=== PATIENT | male | born 1965 | race Caucasian/White ===

== ENCOUNTER 2017-08-12 13:15 | Emergency (ER) | payer MEDICARE, SELFPAY ==
[2017-08-12 13:17] VITALS: BP 127/66; PULSE 69; RESP 16; TEMP 36.7; O2SAT 97; BMI 24.3
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
--- NOTE | 2017-08-12 13:29 | ED.DEP ---
ED Disposition - Plan for ED Patient: Disposition: Home or Assisted Living Chief Complaint: Burn Instructions: ED Burn Scald Prescriptions: Bacitracin 28.4 gm TP TID #1 oint...g. Referrals: Jimmy Gleason MD [Primary Care Provider] -
[2017-08-12] MEDS: BACITRACIN 15 GM Tube 1 APPLIC TOPICAL (13:47)
== END 2017-08-12 13:49 | disposition home or self-care (01) ==
LOC: ED 13:38
PROVIDERS: Emergency Provider Emergency Medicine; Family Provider Family Medicine; PCP Family Medicine
DX: T23.241A Burn of second degree of multiple right fingers (nail), including thumb, initial encounter (principal); T31.0 Burns involving less than 10% of body surface; X11.1XXA Contact with running hot water, initial encounter; Y93.89 Activity, other specified; Y92.9 Unspecified place or not applicable; N18.6 End stage renal disease; Z99.2 Dependence on renal dialysis; Z79.899 Other long term (current) drug therapy
CPT/HCPCS: 99282

== ENCOUNTER → 2017-10-09 06:35 | Day surgery (SDC) | payer MEDICARE, SELFPAY ==
[2017-10-08 09:20] VITALS: BMI 24.3
[2017-10-09 07:03] LABS: Hematocrit 36.4 % (40-54); Hemoglobin 11.4 g/dl (13.0-16.5); Mean Corp Hgb Conc 31.3 g/gl (32-36); Mean Corpuscular Volume 92.6 fL (80-94); Mean Platelet Vol. 9.2 fl (6.2-12.0); Platelet Count 285 K/mm3 (150-450); RBC Distribution Width CV 15.9 % (11.6-14.6); Red Blood Count 3.93 M/mm3 (4.6-6.2); White Blood Count 5.4 K/mm3 (4.4-11.0)
[2017-10-09 07:05] LABS: Scan Indicated on CBC? Y/N NO
[2017-10-09 07:13] LABS: Anion Gap 11 (5-15); BUN 63 mg/dL (7-18); BUN/Creat Ratio 8.8 RATIO (10-20); Calcium,Total 8.2 mg/dL (8.5-10.1); Chloride 100 mmol/L (98-107); Creatinine, Serum 7.17 mg/dL (0.70-1.30); EST Glomerular Filtration Rate 9 mL/min (>60); Est Glom Filt Rate - Afr Amer 10 mL/min (>60); Estimated Creatinine Clearance 10.63 ml/min; Glucose 73 mg/dL (74-106); Potassium 5.3 mmol/L (3.5-5.1); Sodium Level 141 mmol/L (136-145)
--- NOTE | 2017-10-09 09:13 | PCM.OPRPT ---
Problem List (1) Problem with dialysis access Status: Acute Qualifiers: Encounter type: subsequent encounter Report of Operation Date of Procedure: 10/09/17 Pre-Operative Diagnosis: Problem with left upper extremity radiocephalic arteriovenous hemodialysis fistula Post-Operative Diagnosis: Normal-appearing left extremity radiocephalic arteriovenous fistula Surgery/Procedure Performed:: Left upper extremity fistulogram Description of Surgical Findings:: Timeout and informed consent was obtained. 52-year-old gent was taken to the special procedures lab. He was placed supine on the table. The left extremity sterilely prepped and draped. Closer to the antecubital space I instilled 2% lidocaine. Placed a micropuncture needle retrograde with flow inserted a micropuncture wire then a 6 Belgian short sheath dilator. Using an angled Glidewire and a 4 Belgian angled glide cath the wire and catheter placed in the radial artery proximal to the anastomosis. Using Isovue contrast fistulogram was taken to the forearm upper arm and chest area. He tolerated it well. Sheath was removed U suture of 4-0 nylon was placed. There is good pulse thrill and bruit at the completion Fistula gram demonstrates a very dominant large cephalic vein was some reasonable change in the mid and proximal forearm. There appears to be excellent left upper arm cephalic and basilic vein outflow. There also appears to be excellent central venous outflow. The anastomosis is widely patent. Impression Widely patent left upper extremity radiocephalic arteriovenous fistula with no evidence of hemodynamically significant stenosis There is still remaining a dominant tributary sidebranch on the radial aspect of the fistula. If there are ongoing difficulties consideration for side branch ligation of that tributary could be considered. It is quite dominant. Rafa Plasencia M.D., F.A.C.S.
--- NOTE | 2017-10-09 09:16 | OP.PCM_ITS ---
Problem List (1) Problem with dialysis access Status: Acute Qualifiers: Encounter type: subsequent encounter Report of Operation Date of Procedure: 10/09/17 Pre-Operative Diagnosis: Problem with left upper extremity radiocephalic arteriovenous hemodialysis fistula Post-Operative Diagnosis: Normal-appearing left extremity radiocephalic arteriovenous fistula Surgery/Procedure Performed:: Left upper extremity fistulogram Description of Surgical Findings:: Timeout and informed consent was obtained. 52-year-old gent was taken to the special procedures lab. He was placed supine on the table. The left extremity sterilely prepped and draped. Closer to the antecubital space I instilled 2% lidocaine. Placed a micropuncture needle retrograde with flow inserted a micropuncture wire then a 6 [place]an short sheath dilator. Using an angled Glidewire and a 4 [place]an angled glide cath the wire and catheter placed in the radial artery proximal to the anastomosis. Using Isovue contrast fistulogram was taken to the forearm upper arm and chest area. He tolerated it well. Sheath was removed U suture of 4-0 nylon was placed. There is good pulse thrill and bruit at the completion Fistula gram demonstrates a very dominant large cephalic vein was some reasonable change in the mid and proximal forearm. There appears to be excellent left upper arm cephalic and basilic vein outflow. There also appears to be excellent central venous outflow. The anastomosis is widely patent. Impression Widely patent left upper extremity radiocephalic arteriovenous fistula with no evidence of hemodynamically significant stenosis There is still remaining a dominant tributary sidebranch on the radial aspect of the fistula. If there are ongoing difficulties consideration for side branch ligation of that tributary could be considered. It is quite dominant. Rafa Plasencia M.D., F.A.C.S.
== END ==
PROVIDERS: Family Provider Family Medicine; PCP Family Medicine; Visit Provider Surgery
DX: T82.590A Other mechanical complication of surgically created arteriovenous fistula, initial encounter (principal); E11.22 Type 2 diabetes mellitus with diabetic chronic kidney disease; N18.9 Chronic kidney disease, unspecified; Z99.2 Dependence on renal dialysis; Z79.899 Other long term (current) drug therapy
CPT/HCPCS: 36415; 36901; 76937; 80048; 85027; Q9967; C1769

== ENCOUNTER → 2017-10-29 09:33 | Outpatient (CLI) | payer MEDICARE, SELFPAY ==
[2017-10-29 12:50] LABS: Cholesterol 118 mg/dL (200); High Density Lipoprotein 33 mg/dL; Lipase 167 U/L (73-393); Thyroid Stim Hormone (TSH) 1.71 uIU/mL (0.358-3.74); Triglycerides 74 mg/dL; Very Low Density Lipoprotein 15 mg/dL (5-40)
== END ==
PROVIDERS: Family Provider Family Medicine; PCP Family Medicine; Visit Provider Family Medicine
DX: K86.89 Other specified diseases of pancreas (principal); E11.22 Type 2 diabetes mellitus with diabetic chronic kidney disease
CPT/HCPCS: 36415; 80061; 83690; 84443

== ENCOUNTER 2017-11-17 20:40 | Inpatient (IN) | payer MEDICARE, SELFPAY ==
[2017-11-17] VITALS (7 sets, daily range): BP systolic 92–123; BP diastolic 48–56; PULSE 62–91; RESP 16; TEMP 36.9–38.8; O2SAT 87–96; BMI 25.3
--- NOTE | 2017-11-17 21:17 | RAD_ITS ---
STUDY: X-RAY CHEST REASON FOR EXAM: Male, 52 years old. Altered mental status TECHNIQUE: Frontal view of the chest COMPARISON: 07/12/2014 FINDINGS: There is airspace opacity in the right lower lobe which is likely infectious in etiology. The lungs are otherwise clear. There are no pleural effusions. There is no pneumothorax. The heart is normal in size. The visualized osseous structures are within normal limits. RAD/Chest 1 View (Portable) IMPRESSION: Right lower lobe opacity which is likely infectious in etiology. Electronically Signed: Mac Oliveros, at 21:50 EDT Tel , Service support ,
--- NOTE | 2017-11-17 21:17 | EKG12_ITS ---
Test Reason : ALT LOC Blood Pressure : / mmHG Vent. Rate : 085 BPM Atrial Rate : 085 BPM P-R Int : 146 ms QRS Dur : 080 ms QT Int : 398 ms P-R-T Axes : 066 035 004 degrees QTc Int : 473 ms Normal sinus rhythm Low voltage QRS Borderline ECG Confirmed by FRACISCO MIMS, LAURYN ([id number]), makeup editor MILVIA CERDA ([id number]) on 11/20/2017 2:05:01 PM Referred By: KAMAR Confirmed By:LAURYN YAP MD
--- NOTE | 2017-11-17 21:17 | CT_ITS ---
STUDY: CT BRAIN WITHOUT CONTRAST REASON FOR EXAM: Male, 52 years old. Altered mental status RADIATION DOSAGE (If Supplied By Facility): CTDIvol = ( 44.99 ) mGy, DLP = ( 745.49 ) mGycm TECHNIQUE: Transaxial CT imaging of the brain was performed without administration of intravenous contrast material. Individualized dose optimization techniques were used for this CT. COMPARISON: None. FINDINGS: There is no acute bleed or infarct. There are normal white matter tracts. The ventricles are normal in configuration. There is no hydrocephalus. There is mucosal hypertrophy in the right maxillary sinus. The visualized paranasal sinuses are otherwise clear. The mastoid air cells are well aerated. There is no skull fracture. CT/Brain/Head without Contrast IMPRESSION: No acute intracranial abnormality. Right maxillary sinusitis. Electronically Signed: Mac Oliveros, at 22:17 EDT Tel , Service support ,
--- NOTE | 2017-11-17 21:17 | CT_ITS ---
STUDY: CT ABDOMEN AND PELVIS WITHOUT CONTRAST REASON FOR EXAM: Male, 52 years old. Altered mental status. RADIATION DOSAGE (If Supplied By Facility): CTDIvol = ( 9.47 ) mGy, DLP = ( 537.08 ) mGycm TECHNIQUE: Transaxial images were obtained from the dome of the diaphragm to the symphysis pubis without oral contrast, and without intravenous contrast. Sagittal and coronal images were reconstructed. Individualized dose optimization techniques were used for this CT. COMPARISON: 10/19/2014 FINDINGS: Evaluation of the abdominal viscera is limited in the absence of intravenous contrast. There are mild congestive changes noted at the lung bases. The visualized portions of the heart and pericardium are within normal limits. There are coronary artery calcifications noted. There are multiple small calcified gallstones present. The liver is nodular in contour, consistent with cirrhosis. The spleen is normal in size. The pancreas demonstrates an unremarkable unenhanced appearance. The adrenal glands are within normal limits. There are no obstructing renal stones. There is no hydronephrosis. Normal visualized stomach. There is no bowel obstruction or inflammation. The appendix is not visualized, but there are no findings to suggest acute appendicitis. The aorta is normal in caliber. There are atherosclerotic calcifications noted in the aorta and its branches. There is a large amount of free fluid. There is no free air, fluid collection or lymphadenopathy. There are no destructive osseous lesions. CT/Abdomen/Pelvis without Cont IMPRESSION: Large amount of ascites throughout the abdomen and pelvis. No bowel obstruction or inflammation. Nodular liver, consistent with cirrhosis. Gallstones. Congestive changes at the lung bases. Atherosclerosis and coronary artery disease. Electronically Signed: Mac Oliveros, at 22:23 EDT Tel , Service support ,
[2017-11-17] MEDS: Acetaminophen 500 MG Tablet 1000 MG PO (21:23)
--- NOTE | 2017-11-17 21:24 | ED.RN ---
NO OLD EKGS IN MUSE.
[2017-11-17 21:34] LABS: Absolute Neutrophil Count 10.6 X10^3/uL (2.0-7.7); Basophil# 0.02 X10^3/uL; Basophil% 0.2 % (0-1); Eosinophil# 0.06 X10^3/uL; Eosinophils% 0.5 % (0-5); Hematocrit 34.5 % (40-54); Lymphocyte % 2.6 % (19-41); Mean Corp Hgb Conc 31.9 g/gl (32-36); Mean Platelet Vol. 9.9 fl (6.2-12.0); Monocyte# 0.47 X10^3/uL; Monocyte% 4.1 % (0-10); Neutrophil # 10.55 X10^3/uL (2.7-7.7); Neutrophil % 92.3 % (47-70); Platelet Count 240 K/mm3 (150-450); RBC Distribution Width CV 15.8 % (11.6-14.6); RBC Distribution Width SD 50.7 fl (35.1-43.9); Red Blood Count 3.79 M/mm3 (4.6-6.2); White Blood Count 11.4 K/mm3 (4.4-11.0)
[2017-11-17 21:35] LABS: POSITIVE COUNT NO; POSITIVE DIFFERENTIAL YES; POSITIVE MORPHOLOGY NO
[2017-11-17 21:36] LABS: Differential Indicated SCAN CRITERIA MET; International Normalized Ratio 1.2; Prothrombin Time (Protime)PT. 15.1 SECONDS (11.7-14.9)
[2017-11-17 21:37] LABS: Partial Thromboplast Time 32.5 Seconds (24.1-36.2)
[2017-11-17 21:41] LABS: Lactic Acid 1.2 mmol/L (0.4-2.0)
[2017-11-17 21:43] LABS: ALB/GLOB Ratio 0.6 RATIO (0.9-2.4); AST(SGOT) 27 U/L (15-37); Alanine Aminotransfer ALT/SGPT 30 U/L (16-61); Albumin, Serum 3.1 g/dL (3.2-5.0); Alkaline Phosphatase 373 U/L (45-117); Anion Gap 13 (5-15); BUN 31 mg/dL (7-18); BUN/Creat Ratio 6.6 RATIO (10-20); Calcium,Total 7.8 mg/dL (8.5-10.1); Chloride 94 mmol/L (98-107); Creatinine, Serum 4.69 mg/dL (0.70-1.30); EST Glomerular Filtration Rate 14 mL/min (>60); Est Glom Filt Rate - Afr Amer 17 mL/min (>60); Estimated Creatinine Clearance 16.83 ml/min; Globulin 5.2 g/dL (2.2-4.2); Glucose 96 mg/dL (74-106); Potassium 4.2 mmol/L (3.5-5.1); Protein, Total 8.3 g/dL (6.4-8.2); Sodium Level 137 mmol/L (136-145)
--- NOTE | 2017-11-17 21:57 | ED.VISSUMM ---
- ER Visit Summary Date of Service: 11/17/17 Chief Complaint: Confusion History of Present Illness: The patient is a 52 M who has end-stage renal disease and is on hemodialysis. He had dialysis today and when he went home his family states that he had trouble with short-term memory. He did not know the name of one of his family members. They also reported he is having fevers and not acting right. They said his abdomen looked red and distended and felt warm. For me, the patient has no complaints. He does remember going to dialysis but does not remember much after that. He denies any pain, nausea, vomiting, or any other symptoms. Physical Examination: Temperature 101.8. Otherwise vitals unremarkable. Alert and oriented. No acute distress. Heart regular. Lungs clear. Abdomen soft and nontender. Left upper extremity fistula noted. Skin appears normal in color. No focal or lateralizing neurologic abnormalities. No meningeal signs. Test Results: EKG showed sinus rhythm at a rate of 85. No sign of acute ischemia or infarction pattern. White count 11.4 and hemoglobin 11. Cr 4.69. Total bilirubin 1.4 and alk phos 373. Coags unremarkable. Troponin and lactate normal. Chest x-ray shows a right lower lobe opacity concerning for pneumonia. CT abdomen and head are pending. Emergency Department Course and Treatment: Placed on a monitor and treated with Tylenol while awaiting results. Patient continued to have issues with short-term memory. He could not remember why he was in the emergency department. He did remember dialysis today and he does seem to have longer memories intact. He had no other neurologic complaints. No headache or neck pain. No meningeal signs. His pressures did drop to 99/52. A fluid bolus of [address] abdomen showed ascites, cirrhosis, gallstones, and coronary disease among other incidental findings. I checked an ammonia level and it was 24. CT head showed no acute abnormalities. Urinalysis is pending. Influenza test pending. Cultures pending. Patient was covered with Zosyn and vancomycin. I spoke with Dr. Engle, who will admit the patient to PCU. Treatment Plan: As above Disposition: Admission Impression: 1. Delirium 2. Healthcare associated pneumonia 3. Sepsis 4. End-stage renal disease This note was generated with YuMingleation software. It may contain incorrect words, spelling, and punctuation that were not noted in review of the chart prior to signing ED Disposition - Plan for ED Patient: Chief Complaint: Alt LOC Referrals: Jimmy Gleason MD [Primary Care Provider] -
[2017-11-17 22:05] LABS: Differential Comment SCANNED
[2017-11-17] MEDS: Piperacil/Tazobactam 3.375 GM/50 ML ML IV (22:58)
[2017-11-17 23:29] LABS: Mucous, Urine 0 SEEN /hpf (<or=2+)
[2017-11-17 23:33] LABS: Color, Urine Yellow (Yellow); Glucose, Dipstick Normal (Normal); Ketone-Dipstick Negative (Negative); Leukocyte Esterase-Dipstick 25 /ul (Negative); Nitrite-Dipstick Negative (Negative); Occult Blood-Urine 250 /ul (Negative); Protein-Dipstick 500 mg/dl (Negative); Urine Bilirubin Dipstick Negative (Negative); Urine Clarity Sl. Cloudy (Clear); Urine Urobilinogen Normal (Normal)
[2017-11-17 23:42] LABS: Bacteria RARE /hpf (None Seen); Red Blood Cells-Urine 5-10 SEEN /hpf (0-5); Squamous Epithelial Cells - UA 0-5 SEEN /hpf (0-5); Transitional Epithelial - Ur 0-5 SEEN /hpf (0-5); White Blood Cells 0-5 SEEN /hpf (0-5)
[2017-11-18] VITALS (23 sets, daily range): BP systolic 92–112; BP diastolic 45–58; PULSE 67–90; RESP 14–20; TEMP 36.7–38.2; O2SAT 92–99; BMI 24.8; BMI 25.4
--- NOTE | 2017-11-18 00:16 | PCM.HP.STD ---
Problem List (1) End stage renal disease Status: Chronic (2) DM2 (diabetes mellitus, type 2) Status: Chronic (3) HTN (hypertension) Status: Chronic (4) HCAP (healthcare-associated pneumonia) Status: Acute (5) Sepsis Status: Acute (6) Metabolic encephalopathy Status: Acute History of Present Illness Date of Admission: 11/17/17 Chief Complaint: confusion The patient is a 52 year old M who was at dialysis on the and started having fever. Afterwards, patient was confused and did not remember much in way of events. Family was concerned because the patient did not recognize his . Patient was brought to the hospital and was noted to have a fever And was septic. Patient did receive a small bolus of IV fluids. Patient did receive vancomycin and Zosyn. Patient has no recollection of the events in regards to him getting to the hospital and the family has been concerned as he is never done anything like this before. Patient has otherwise been feeling well. [] Past Medical History Past Medical History (Chronic Problems): Chronic Problems (Last Reviewed 10/07/17 @ 12:39 by Krissy Stratton) End stage renal disease (Chronic) DM2 (diabetes mellitus, type 2) (Chronic) HTN (hypertension) (Chronic) Allergies No Known Allergies Allergy (Verified 10/07/17 12:39) Home Medications: Ambulatory Orders Medication Instructions Recorded Amlodipine Besylate [Amlodipine 5 mg PO DAILY 10/19/14 Besylate] Doxazosin Mesylate [Cardura] 4 mg PO QHS 08/20/15 Lisinopril [Zestril] 40 mg PO QHS 08/20/15 Minoxidil [Loniten] 2.5 mg PO BID 08/20/15 Pravastatin [Pravachol] 40 mg PO QHS 08/20/15 Calcium Acetate [Phoslo Gel Cap] 667 mg PO TID 04/24/16 Dicyclomine HCl [Bentyl] 10 mg PO PRN PRN 04/24/16 Diphenoxylate HCl/Atropine 1 ea PO PRN PRN 04/24/16 [Lomotil 2.5-0.025 mg Tablet] Simethicone [Gas-X] 80 mg PO PRN PRN 04/24/16 Bacitracin 28.4 gm TP TID #1 oint...g. 08/12/17 fluticasone 50 mcg/actuation nasal 50 mcg INTRANASAL QDAY PRN 09/21/17 spray,suspension [id number] 1 cap PO TID cap 09/21/17 3,000-9,500-15,000 unit capsule,delayed releas metoprolol tartrate 50 mg tablet 25 mg PO BID tab 09/21/17 vitamin B complex and vitamin C 1 cap PO QDAY 09/21/17 no.20-folic acid 1 mg capsule Surgical History: - - Left arm AV fistula Psychiatric History: No pertinent psych hx Lives: Spouse/ Significant Other Smoking Status: Former smoker Tobacco Use: Chew Alcohol: None Drugs: None - *Family History Paternal History Items: Diabetes Review of Systems Constitutional: Reports: Chills, Fever. Denies: Anorexia Eyes: Denies: Blurred vision, Double vision HEENT: Denies: Head Aches, Sinus Congestion, Sinus Drainage Cardiovascular: Denies: Chest Pain, Palpitations Respiratory: Denies: Cough, Shortness of breath at rest, Sputum production Gastrointestinal: Reports: - - Chronic abdominal distention. Denies: Abdominal Pain Genitourinary: Denies: Dysuria, Hematuria Musculoskeletal: Denies: Joint Pain, Joint Tenderness Skin: Denies: Rash, Wounds Neurological: Reports: Confusion. Denies: Focal weakness, Numbness, Tingling Psychiatric: Denies: Anxiety, Depression Endocrine: Denies: Change in Body Habitus, Heat/ Cold Intolerance Hematologic/ Lymphatic: Denies: Easy Bruising, Easy Bleeding, Hx of blood clot VTE Information - Inpt Only VTE Present on Admission: No VTE Pharm Prophylaxis ordered?: Yes Patient Problems: Active and Suspected Problems (Last Reviewed 10/07/17 @ 12:39 by Krissy Stratton) HCAP (healthcare-associated pneumonia) (Acute) Sepsis (Acute) Metabolic encephalopathy (Acute) - Physical Exam General: Alert, - - Oriented to self and place. The date is December 1901-something HEENT: Atraumatic, Normocephalic Oral: Moist Mucosa, No Gingival or Mucosal Lesions/ Ulcerations Neck: No Nodes, Thyroid Normal Size and Texture Lungs: Clear to auscultation, Normal air movement, No rhonchi, No wheeze Cardiovascular: Regular rate, Regular Rhythm, Normal S1, Normal S2, No murmurs Abdomen: Bowel Sounds Present, Soft, Non Tender, Distended Extremities: No edema, No Calf Tenderness Skin: No rashes, No breakdown Musculoskeletal: Cachexia, Muscle Wasting Neurological: Neuro grossly intact, Muscle tone normal Psych/Mental Status: Normal Affect, Appropriate Vital Signs Temp Pulse Resp BP Pulse Ox 36.9 C 71 16 92/50 L 94 11/17/17 23:53 11/18/17 00:00 11/18/17 00:00 11/18/17 00:00 11/18/17 00:00 Oxygen Flow Rate (L/min) 4 Oxygen Delivery Method Nasal Cannula Weight: 73.5 kg Body Mass Index (BMI) 25.3 Finger Stick Blood Glucose 175 Laboratory Tests Past 24 Hrs 11/17/17 11/17/17 11/17/17 20:48 20:48 20:48 WBC 11.4 H RBC 3.79 L Hgb 11.0 L Hct 34.5 L MCV 91.0 MCH 29.0 MCHC 31.9 L RDW 15.8 H RDW Differential 50.7 H Plt Count 240 MPV 9.9 Immature Gran % (Auto) 0.300 Neut % (Auto) 92.3 H Lymph % (Auto) 2.6 L [place] % (Auto) 4.1 Eos % (Auto) 0.5 Baso % (Auto) 0.2 Absolute Neuts (auto) 10.6 H Absolute Lymphs (auto) 0.30 L Total Counted Not Reportable Differential Comment SCANNED PT 15.1 H INR 1.2 APTT 32.5 Sodium 137 Potassium 4.2 Chloride 94 L Carbon Dioxide 30.0 Anion Gap 13 BUN 31 H Creatinine 4.69 H Estim Creat Clear Calc 16.83 Est GFR (MDRD) Af Amer 17 L Est GFR (MDRD) Non-Af 14 L BUN/Creatinine Ratio 6.6 L Glucose 96 Lactic Acid Calcium 7.8 L Total Bilirubin 1.40 H AST 27 ALT 30 Alkaline Phosphatase 373 H Ammonia Troponin I 0.034 Total Protein 8.3 H Albumin 3.1 L Globulin 5.2 H Albumin/Globulin Ratio 0.6 L Urine Color Urine Clarity Urine pH Ur Specific [place] Urine Protein Urine Glucose (UA) Urine Ketones Urine Occult Blood Urine Nitrite Urine Bilirubin Urine Urobilinogen Ur Leukocyte Esterase Urine RBC Urine WBC Ur Squamous Epith Cells Ur Transition Epith Cell Urine Bacteria Urine Mucus 11/17/17 11/17/17 11/17/17 20:48 22:46 23:25 WBC RBC Hgb Hct MCV MCH MCHC RDW RDW Differential Plt Count MPV Immature Gran % (Auto) Neut % (Auto) Lymph % (Auto) [place] % (Auto) Eos % (Auto) Baso % (Auto) Absolute Neuts (auto) Absolute Lymphs (auto) Total Counted Differential Comment PT INR APTT Sodium Potassium Chloride Carbon Dioxide Anion Gap BUN Creatinine Estim Creat Clear Calc Est GFR (MDRD) Af Amer Est GFR (MDRD) Non-Af BUN/Creatinine Ratio Glucose Lactic Acid 1.2 Calcium Total Bilirubin AST ALT Alkaline Phosphatase Ammonia 24.0 Troponin I Total Protein Albumin Globulin Albumin/Globulin Ratio Urine Color Yellow Urine Clarity Sl. Cloudy Urine pH 8.0 Ur Specific [place] 1.010 Urine Protein 500 H Urine Glucose (UA) Normal Urine Ketones Negative Urine Occult Blood 250 H Urine Nitrite Negative Urine Bilirubin Negative Urine Urobilinogen Normal Ur Leukocyte Esterase 25 H Urine RBC 5-10 SEEN Urine WBC 0-5 SEEN Ur Squamous Epith Cells 0-5 SEEN Ur Transition Epith Cell 0-5 SEEN Urine Bacteria RARE Urine Mucus 0 SEEN Clinical Impression(s) from Imaging Studies Abdomen/Pelvis CT 11/17/17 21:17 IMPRESSION: Large amount of ascites throughout the abdomen and pelvis. No bowel obstruction or inflammation. Nodular liver, consistent with cirrhosis. Gallstones. Congestive changes at the lung bases. Atherosclerosis and coronary artery disease. Electronically Signed: Mac Oliveros, at 22:23 EDT Tel , Service support , Brain CT 11/17/17 21:17 IMPRESSION: No acute intracranial abnormality. Right maxillary sinusitis. Electronically Signed: Mac Oliveros, at 22:17 EDT Tel , Service support , Chest X-Ray 11/17/17 21:17 IMPRESSION: Right lower lobe opacity which is likely infectious in etiology. Electronically Signed: Mac Oliveros, at 21:50 EDT Tel , Service support , Assessment/Plan Active and Suspected Problems (Last Reviewed 10/07/17 @ 12:39 by Krissy Stratton) HCAP (healthcare-associated pneumonia) (Acute) Sepsis (Acute) Metabolic encephalopathy (Acute) 1. Sepsis Patient meets 2 out of 4 Sirs criteria Suspect related with pneumonia but influenza swab currently pending 2. Suspected gram-negative pneumonia/healthcare acquired pneumonia Patient is a patchy infiltrates on his chest x-ray Given that he is a dialysis patient will treat him empirically for healthcare acquired pneumonia with vancomycin and Zosyn Check urine antigens for Streptococcus and Legionella Check sputum culture Pulmonary toilet 3. Metabolic encephalopathy Patient with confusion that still persists but better This coincided with his going febrile I suspect it is related with the underlying infection with pneumonia or influenza. 4. End-stage renal disease On hemodialysis every Thursday Patient completed his dialysis on the Dr. Kendall will be on consultation 5. Ascites Sounds as though this may be chronic Patient equates is being related with his dialysis, but feel that is related with his being end-stage renal disease as he really has no edema elsewhere. I feel would be appropriate to at least get an ultrasound of his abdomen to see if he has an underlying cirrhosis. Of note, patient had a paracentesis ordered on April 2016 but it was canceled. Unclear if that was in air or if it was actually scheduled for this and just canceled Patient and family are really unaware of other possibilities for his ascites. 6. DVT prophylaxis with heparin Patient was seen and examined and history and physical was performed on November 17. Code Visit Inpatient E&M: 70077 Init Hosp L3
--- NOTE | 2017-11-18 00:25 | HP.PCM_ITS ---
Problem List (1) End stage renal disease Status: Chronic (2) DM2 (diabetes mellitus, type 2) Status: Chronic (3) HTN (hypertension) Status: Chronic (4) HCAP (healthcare-associated pneumonia) Status: Acute (5) Sepsis Status: Acute (6) Metabolic encephalopathy Status: Acute History of Present Illness Date of Admission: 11/17/17 Chief Complaint: confusion The patient is a 52 year old M who was at dialysis on the and started having fever. Afterwards, patient was confused and did not remember much in way of events. Family was concerned because the patient did not recognize his . Patient was brought to the hospital and was noted to have a fever And was septic. Patient did receive a small bolus of IV fluids. Patient did receive vancomycin and Zosyn. Patient has no recollection of the events in regards to him getting to the hospital and the family has been concerned as he is never done anything like this before. Patient has otherwise been feeling well. [] Past Medical History Past Medical History (Chronic Problems): Chronic Problems (Last Reviewed 10/07/17 @ 12:39 by Krissy Stratton) End stage renal disease (Chronic) DM2 (diabetes mellitus, type 2) (Chronic) HTN (hypertension) (Chronic) Allergies No Known Allergies Allergy (Verified 10/07/17 12:39) Home Medications: Ambulatory Orders Medication Instructions Recorded Amlodipine Besylate [Amlodipine 5 mg PO DAILY 10/19/14 Besylate] Doxazosin Mesylate [Cardura] 4 mg PO QHS 08/20/15 Lisinopril [Zestril] 40 mg PO QHS 08/20/15 Minoxidil [Loniten] 2.5 mg PO BID 08/20/15 Pravastatin [Pravachol] 40 mg PO QHS 08/20/15 Calcium Acetate [Phoslo Gel Cap] 667 mg PO TID 04/24/16 Dicyclomine HCl [Bentyl] 10 mg PO PRN PRN 04/24/16 Diphenoxylate HCl/Atropine 1 ea PO PRN PRN 04/24/16 [Lomotil 2.5-0.025 mg Tablet] Simethicone [Gas-X] 80 mg PO PRN PRN 04/24/16 Bacitracin 28.4 gm TP TID #1 oint...g. 08/12/17 fluticasone 50 mcg/actuation nasal 50 mcg INTRANASAL QDAY PRN 09/21/17 spray,suspension [id number] 1 cap PO TID cap 09/21/17 3,000-9,500-15,000 unit capsule,delayed releas metoprolol tartrate 50 mg tablet 25 mg PO BID tab 09/21/17 vitamin B complex and vitamin C 1 cap PO QDAY 09/21/17 no.20-folic acid 1 mg capsule Surgical History: - - Left arm AV fistula Psychiatric History: No pertinent psych hx Lives: Spouse/ Significant Other Smoking Status: Former smoker Tobacco Use: Chew Alcohol: None Drugs: None - *Family History Paternal History Items: Diabetes Review of Systems Constitutional: Reports: Chills, Fever. Denies: Anorexia Eyes: Denies: Blurred vision, Double vision HEENT: Denies: Head Aches, Sinus Congestion, Sinus Drainage Cardiovascular: Denies: Chest Pain, Palpitations Respiratory: Denies: Cough, Shortness of breath at rest, Sputum production Gastrointestinal: Reports: - - Chronic abdominal distention. Denies: Abdominal Pain Genitourinary: Denies: Dysuria, Hematuria Musculoskeletal: Denies: Joint Pain, Joint Tenderness Skin: Denies: Rash, Wounds Neurological: Reports: Confusion. Denies: Focal weakness, Numbness, Tingling Psychiatric: Denies: Anxiety, Depression Endocrine: Denies: Change in Body Habitus, Heat/ Cold Intolerance Hematologic/ Lymphatic: Denies: Easy Bruising, Easy Bleeding, Hx of blood clot VTE Information - Inpt Only VTE Present on Admission: No VTE Pharm Prophylaxis ordered?: Yes Patient Problems: Active and Suspected Problems (Last Reviewed 10/07/17 @ 12:39 by Krissy Stratton) HCAP (healthcare-associated pneumonia) (Acute) Sepsis (Acute) Metabolic encephalopathy (Acute) - Physical Exam General: Alert, - - Oriented to self and place. The date is December 1901-something HEENT: Atraumatic, Normocephalic Oral: Moist Mucosa, No Gingival or Mucosal Lesions/ Ulcerations Neck: No Nodes, Thyroid Normal Size and Texture Lungs: Clear to auscultation, Normal air movement, No rhonchi, No wheeze Cardiovascular: Regular rate, Regular Rhythm, Normal S1, Normal S2, No murmurs Abdomen: Bowel Sounds Present, Soft, Non Tender, Distended Extremities: No edema, No Calf Tenderness Skin: No rashes, No breakdown Musculoskeletal: Cachexia, Muscle Wasting Neurological: Neuro grossly intact, Muscle tone normal Psych/Mental Status: Normal Affect, Appropriate Vital Signs Temp Pulse Resp BP Pulse Ox 36.9 C 71 16 92/50 L 94 11/17/17 23:53 11/18/17 00:00 11/18/17 00:00 11/18/17 00:00 11/18/17 00:00 Oxygen Flow Rate (L/min) 4 Oxygen Delivery Method Nasal Cannula Weight: 73.5 kg Body Mass Index (BMI) 25.3 Finger Stick Blood Glucose 175 Laboratory Tests Past 24 Hrs 11/17/17 11/17/17 11/17/17 20:48 20:48 20:48 WBC 11.4 H RBC 3.79 L Hgb 11.0 L Hct 34.5 L MCV 91.0 MCH 29.0 MCHC 31.9 L RDW 15.8 H RDW Differential 50.7 H Plt Count 240 MPV 9.9 Immature Gran % (Auto) 0.300 Neut % (Auto) 92.3 H Lymph % (Auto) 2.6 L Wirt % (Auto) 4.1 Eos % (Auto) 0.5 Baso % (Auto) 0.2 Absolute Neuts (auto) 10.6 H Absolute Lymphs (auto) 0.30 L Total Counted Not Reportable Differential Comment SCANNED PT 15.1 H INR 1.2 APTT 32.5 Sodium 137 Potassium 4.2 Chloride 94 L Carbon Dioxide 30.0 Anion Gap 13 BUN 31 H Creatinine 4.69 H Estim Creat Clear Calc 16.83 Est GFR (MDRD) Af Amer 17 L Est GFR (MDRD) Non-Af 14 L BUN/Creatinine Ratio 6.6 L Glucose 96 Lactic Acid Calcium 7.8 L Total Bilirubin 1.40 H AST 27 ALT 30 Alkaline Phosphatase 373 H Ammonia Troponin I 0.034 Total Protein 8.3 H Albumin 3.1 L Globulin 5.2 H Albumin/Globulin Ratio 0.6 L Urine Color Urine Clarity Urine pH Ur Specific [place] Urine Protein Urine Glucose (UA) Urine Ketones Urine Occult Blood Urine Nitrite Urine Bilirubin Urine Urobilinogen Ur Leukocyte Esterase Urine RBC Urine WBC Ur Squamous Epith Cells Ur Transition Epith Cell Urine Bacteria Urine Mucus 11/17/17 11/17/17 11/17/17 20:48 22:46 23:25 WBC RBC Hgb Hct MCV MCH MCHC RDW RDW Differential Plt Count MPV Immature Gran % (Auto) Neut % (Auto) Lymph % (Auto) Wirt % (Auto) Eos % (Auto) Baso % (Auto) Absolute Neuts (auto) Absolute Lymphs (auto) Total Counted Differential Comment PT INR APTT Sodium Potassium Chloride Carbon Dioxide Anion Gap BUN Creatinine Estim Creat Clear Calc Est GFR (MDRD) Af Amer Est GFR (MDRD) Non-Af BUN/Creatinine Ratio Glucose Lactic Acid 1.2 Calcium Total Bilirubin AST ALT Alkaline Phosphatase Ammonia 24.0 Troponin I Total Protein Albumin Globulin Albumin/Globulin Ratio Urine Color Yellow Urine Clarity Sl. Cloudy Urine pH 8.0 Ur Specific Hamlet 1.010 Urine Protein 500 H Urine Glucose (UA) Normal Urine Ketones Negative Urine Occult Blood 250 H Urine Nitrite Negative Urine Bilirubin Negative Urine Urobilinogen Normal Ur Leukocyte Esterase 25 H Urine RBC 5-10 SEEN Urine WBC 0-5 SEEN Ur Squamous Epith Cells 0-5 SEEN Ur Transition Epith Cell 0-5 SEEN Urine Bacteria RARE Urine Mucus 0 SEEN Clinical Impression(s) from Imaging Studies Abdomen/Pelvis CT 11/17/17 21:17 IMPRESSION: Large amount of ascites throughout the abdomen and pelvis. No bowel obstruction or inflammation. Nodular liver, consistent with cirrhosis. Gallstones. Congestive changes at the lung bases. Atherosclerosis and coronary artery disease. Electronically Signed: Mac Oliveros, at 22:23 EDT Tel , Service support , Brain CT 11/17/17 21:17 IMPRESSION: No acute intracranial abnormality. Right maxillary sinusitis. Electronically Signed: Mac Oliveros, at 22:17 EDT Tel , Service support , Chest X-Ray 11/17/17 21:17 IMPRESSION: Right lower lobe opacity which is likely infectious in etiology. Electronically Signed: Mac Oliveros, at 21:50 EDT Tel , Service support , Assessment/Plan Active and Suspected Problems (Last Reviewed 10/07/17 @ 12:39 by Krissy Stratton) HCAP (healthcare-associated pneumonia) (Acute) Sepsis (Acute) Metabolic encephalopathy (Acute) 1. Sepsis * Patient meets 2 out of 4 Sirs criteria * Suspect related with pneumonia but influenza swab currently pending 2. Suspected gram-negative pneumonia/healthcare acquired pneumonia * Patient is a patchy infiltrates on his chest x-ray * Given that he is a dialysis patient will treat him empirically for healthcare acquired pneumonia with vancomycin and Zosyn * Check urine antigens for Streptococcus and Legionella * Check sputum culture * Pulmonary toilet 3. Metabolic encephalopathy * Patient with confusion that still persists but better * This coincided with his going febrile * I suspect it is related with the underlying infection with pneumonia or influenza. 4. End-stage renal disease * On hemodialysis every Thursday * Patient completed his dialysis on the * Dr. Kendall will be on consultation 5. Ascites * Sounds as though this may be chronic * Patient equates is being related with his dialysis, but feel that is related with his being end-stage renal disease as he really has no edema elsewhere. * I feel would be appropriate to at least get an ultrasound of his abdomen to see if he has an underlying cirrhosis. * Of note, patient had a paracentesis ordered on April 2016 but it was canceled. Unclear if that was in air or if it was actually scheduled for this and just canceled * Patient and family are really unaware of other possibilities for his ascites. 6. DVT prophylaxis with heparin Patient was seen and examined and history and physical was performed on November 17. Code Visit Inpatient E&M: 20166 Init Hosp L3
--- NOTE | 2017-11-18 01:05 | US_ITS ---
STUDY: ABDOMINAL ULTRASOUND - RIGHT UPPER QUADRANT REASON FOR VISIT: Male, 52 years old. Cirrhosis. Gallstones. Ascites. TECHNIQUE: Ultrasound evaluation of the right upper quadrant was performed with real-time and static sanchez-scale imaging. TECHNICAL QUALITY: Adequate. COMPARISON: Comparison is made with prior CT scan the abdomen dated November 17, 2017. FINDINGS: Ascites. Liver: The liver is enlarged and measures 19.4 cm. Nodular hepatic contour. There is a heterogeneous echogenicity of the liver. The bile ducts are within normal limits. There is hepatic color flow. The direction of portal flow is hepatopetal. There is no demonstrated mass lesion. Gallbladder: Normal distended gallbladder. The gallbladder wall is thickened and measures 6.0 mm. There is a negative sonographic Reed's sign. There is pericholecystic fluid. There are multiple echogenic structures within the gallbladder, consistent with multiple gallstones. Is also evidence of gallbladder polyps. Common Bile Duct (C.B.D.): The common bile duct measures 5.0 mm. Pancreas: Normal size of the head, body and tail of the pancreas. There is normal echogenicity of the pancreas. There is no demonstrated pancreatic mass or cyst. Right Kidney: Normal size of the right kidney. The right kidney measures 9.6 cm x 5.7 cm x 4.0 cm. There is thinning of the renal cortex. The right cortex measures 0.8 cm. There is no demonstrated renal mass or cyst. There is no right hydronephrosis. US/Abdomen Limited IMPRESSION: Hepatomegaly. Multiple gallstones with sludge and gallbladder polyps. Ascites. Electronically Signed: Vu Espinoza MD at 12:49 EDT Tel [phone], Service support ,
[2017-11-18 01:26] LABS: Bedside Glucose 73 mg/dL (70-110)
[2017-11-18 05:43] LABS: Hematocrit 34.2 % (40-54); Hemoglobin 10.8 g/dl (13.0-16.5); Mean Corp Hgb Conc 31.6 g/gl (32-36); Mean Corpuscular Hgb 28.9 pg (27.0-32.0); Mean Corpuscular Volume 91.4 fL (80-94); Platelet Count 238 K/mm3 (150-450); RBC Distribution Width CV 16.2 % (11.6-14.6); Red Blood Count 3.74 M/mm3 (4.6-6.2); White Blood Count 19.4 K/mm3 (4.4-11.0)
[2017-11-18 05:59] LABS: Anion Gap 10 (5-15); BUN 38 mg/dL (7-18); BUN/Creat Ratio 7.4 RATIO (10-20); Calcium,Total 7.9 mg/dL (8.5-10.1); Chloride 96 mmol/L (98-107); Creatinine, Serum 5.12 mg/dL (0.70-1.30); EST Glomerular Filtration Rate 13 mL/min (>60); Est Glom Filt Rate - Afr Amer 15 mL/min (>60); Estimated Creatinine Clearance 14.88 ml/min; Glucose 142 mg/dL (74-106); Potassium 4.6 mmol/L (3.5-5.1); Sodium Level 136 mmol/L (136-145)
[2017-11-18] MEDS: Calcium Acetate 667 MG Capsule PO ×3 (06:14→22:10)
[2017-11-18 06:19] LABS: Scan Indicated on CBC? Y/N NO
[2017-11-18] MEDS: Ipratropium/Albuterol Sulfate 3 ML AMPUL.NEB INHALATION ×4 (06:51→19:07)
--- NOTE | 2017-11-18 09:04 | PCM.CONS.R ---
Consultation - Renal 11/18/17 PCP/ Referring MD: Requesting physician: Jimmy Engle Primary care physician: Jimmy Gleason Reason for Consultation:: ESRD dialysis mgmt TTS - History of Present Illness History of Present Illness: The patient is a 52 year old M with ESRD due to diabetes on hemodialysis Thursday, , Thursday last dialysis yesterday afternoon. Patient was brought to the hospital for fever and shaking chills following his dialysis yesterday. He had confusion and poor appetite following his dialysis yesterday. He was admitted for pneumonia possible sepsis. He denied any cough or shortness of breath. He had leukocytosis of WBC at 19,000 with fever with temperature of 101.8. Patient did receive vancomycin and Zosyn. Patient has no recollection of the events in regards to him getting to the hospital and the family has been concerned as he is never done anything like this before. He does not recall seeing me at the dialysis center yesterday. He is feeling better now however he is still disoriented to time. His son is at bedside states he is still confused. Blood culture showed gram-positive cocci on 1 set. Urine was positive for strep pneumonia. Chest x-ray revealed right lower lobe infiltrate. Stool for C. difficile was negative. - Allergies Allergies: Allergies No Known Allergies Allergy (Verified 11/18/17 02:12) - Current Medications Current Medications: Current Medications Acetaminophen (Tylenol) 650 mg PO Q6H PRN PRN PRN Reason: Mild Pain (1-3)/Temp > 100.7 F Albuterol Sulfate (Ventolin Aerosols) 2.5 mg INHALATION Q2H PRN PRN PRN Reason: SHORTNESS OF BREATH Albuterol/Ipratropium (Duoneb) 3 ml INHALATION Q4HWA.RT GUERLINE Last Admin: 11/18/17 06:51 Dose: 3 ml Calcium Acetate (Phoslo Gel Cap) 667 mg PO TID GUERLINE Last Admin: 11/18/17 06:14 Dose: 667 mg Doxazosin Mesylate (Cardura) 4 mg PO QHS [facility] Fluticasone Propionate (Flonase Nasal [place]) 1 spray NASAL DAILY PRN PRN PRN Reason: NASAL CONGESTION Guaifenesin (Mucinex) 1,200 mg PO BID [facility] Heparin Sodium (Porcine) (Heparin Na) 5,000 unit SC Q12 GUERLINE Sodium Chloride () 250 mls @ 15 mls/hr IV .[id number] PRN PRN Reason: SALINE FLUSH Azithromycin 250 mg/ Dextrose 252.5 mls @ 250 mls/hr IV Q24 GUERLINE Ceftriaxone Sodium (Rocephin) 1 gm in 50 mls @ 100 mls/hr IV Q24 GUERLINE Magnesium Hydroxide (Milk Of Magnesia) 30 ml PO DAILY PRN PRN Reason: Constipation Metoprolol Tartrate (Lopressor (Beta Alec)) 25 mg PO BID GUERLINE Ondansetron HCl (Zofran) 4 mg IV Q8H PRN PRN PRN Reason: NAUSEA Pancrelipase (Pancrelipase (5000-17,000-27,000)) 1 capsule PO TID GUERLINE Pravastatin Sodium (Pravachol) 40 mg PO QHS GUERLINE Sodium Chloride () 5 - 30 ml IV UD PRN PRN Reason: SALINE FLUSH - Past Medical History Past Medical History (Chronic Problems): Chronic Problems (Last Reviewed 10/07/17 @ 12:39 by Krissy Stratton) End stage renal disease (Chronic) DM2 (diabetes mellitus, type 2) (Chronic) HTN (hypertension) (Chronic) - Past Surgical History Surgical History: - - Left arm AV fistula - Social History Marital Status: Smoking Status: Former smoker Alcohol: None Drugs: None - Family History Paternal History Items: Diabetes Review of Systems Constitutional: Reports: Anorexia, Chills, Fever, Malaise, Weakness, Fatigue HEENT: Denies: Head Aches Cardiovascular: Denies: Chest Pain, Edema Respiratory: Denies: Cough, Shortness of Breath Gastrointestinal: Denies: Abdominal Pain, Constipation, Diarrhea, Nausea, Vomiting Genitourinary: Denies: Dysuria Musculoskeletal: Denies: Back Pain, Joint swelling Skin: Denies: Rash Neurological: Reports: Confusion, - - Shaking chills. Denies: Tremor Psychiatric: Denies: Anxiety, Depression Endocrine: Reports: - - Diabetic Hematologic/ Lymphatic: Reports: Anemia Patient Problems: Active and Suspected Problems (Last Reviewed 10/07/17 @ 12:39 by Krissy Stratton) HCAP (healthcare-associated pneumonia) (Acute) Sepsis (Acute) Metabolic encephalopathy (Acute) - Physical Exam General: Alert, Cooperative, No apparent distress, Well developed, Well nourished, Confused, Disoriented HEENT: PERRLA, EOMI Oral: Dry Mucosa Neck: Supple Lungs: Rales - Faint crackles at bases Cardiovascular: Regular rate, Murmur Abdomen: Bowel Sounds Present, Soft, Non Tender, Non-Distended Extremities: No edema, - - AV fistula with good thrill and bruit Musculoskeletal: Muscle Wasting Psych/Mental Status: Appropriate, - - Used Vital Signs Temp Pulse Resp BP Pulse Ox 98.6 F 71 16 112/58 L 92 11/18/17 06:19 11/18/17 07:06 11/18/17 06:51 11/18/17 06:19 11/18/17 06:51 Oxygen Flow Rate (L/min) 2 Oxygen Delivery Method Room Air Weight: 71.849 kg Body Mass Index (BMI) 24.8 Intake and Output for Last 24 Hours 11/16/17 11/17/17 11/18/17 23:59 23:59 23:59 Intake Total 562 / 562 Balance 562 / 562 Microbiology Past 72 Hours 11/18/17 04:40 C. difficile DNA Amplification - Final Stool 11/18/17 00:25 Influenza Types A,B Direct FA (AMOL) - Final Mucosa - Nasopharyngeal Laboratory Tests Past 24 Hrs 11/18/17 11/18/17 05:20 05:20 WBC 19.4 H RBC 3.74 L Hgb 10.8 L Hct 34.2 L MCV 91.4 MCH 28.9 MCHC 31.6 L RDW 16.2 H RDW Differential 52.0 H Plt Count 238 MPV 10.0 Sodium 136 Potassium 4.6 Chloride 96 L Carbon Dioxide 30.0 Anion Gap 10 BUN 38 H Creatinine 5.12 H Estim Creat Clear Calc 14.88 Est GFR (MDRD) Af Amer 15 L Est GFR (MDRD) Non-Af 13 L BUN/Creatinine Ratio 7.4 L Glucose 142 H Calcium 7.9 L POC Glucose 11/18/17 01:18 POC Glucose 73 Assessment/Plan Active and Suspected Problems (Last Reviewed 10/07/17 @ 12:39 by Krissy Stratton) HCAP (healthcare-associated pneumonia) (Acute) Sepsis (Acute) Metabolic encephalopathy (Acute) 1. ESRD hemodialysis Thursday, , Thursday. Last dialysis yesterday. Next dialysis on . 2. Sepsis with fever and leukocytosis + strep pneumonia in urine, GPC in blood. Continue with IV antibiotic therapy. Check Vanco level prior to re-dosing 3. Confusion likely due to infectious process 4. DM type II primary management 5. Hypertension with stable blood pressure 6. Pancreatic insufficiency on Creon 7. Anemia hemoglobin stable BRITNEY therapy per chronic orders.
--- NOTE | 2017-11-18 09:14 | CON.PCM_ITS ---
Consultation - Renal 11/18/17 PCP/ Referring MD: Requesting physician: Jimmy Engle Primary care physician: Jimmy Gleason Reason for Consultation:: ESRD dialysis mgmt TTS - History of Present Illness History of Present Illness: The patient is a 52 year old M with ESRD due to diabetes on hemodialysis Thursday , , Thursday last dialysis yesterday afternoon. Patient was brought to the hospital for fever and shaking chills following his dialysis yesterday. He had confusion and poor appetite following his dialysis yesterday. He was admitted for pneumonia possible sepsis. He denied any cough or shortness of breath. He had leukocytosis of WBC at 19,000 with fever with temperature of 101.8. Patient did receive vancomycin and Zosyn. Patient has no recollection of the events in regards to him getting to the hospital and the family has been concerned as he is never done anything like this before. He does not recall seeing me at the dialysis center yesterday. He is feeling better now however he is still disoriented to time. His son is at bedside states he is still confused. Blood culture showed gram-positive cocci on 1 set. Urine was positive for strep pneumonia. Chest x-ray revealed right lower lobe infiltrate. Stool for C. difficile was negative. - Allergies Allergies: Allergies No Known Allergies Allergy (Verified 11/18/17 02:12) - Current Medications Current Medications: Current Medications Acetaminophen (Tylenol) 650 mg PO Q6H PRN PRN PRN Reason: Mild Pain (1-3)/Temp > 100.7 F Albuterol Sulfate (Ventolin Aerosols) 2.5 mg INHALATION Q2H PRN PRN PRN Reason: SHORTNESS OF BREATH Albuterol/Ipratropium (Duoneb) 3 ml INHALATION Q4HWA.RT GUERLINE Last Admin: 11/18/17 06:51 Dose: 3 ml Calcium Acetate (Phoslo Gel Cap) 667 mg PO TID GUERLINE Last Admin: 11/18/17 06:14 Dose: 667 mg Doxazosin Mesylate (Cardura) 4 mg PO QHS [facility] Fluticasone Propionate (Flonase Nasal [place]) 1 spray NASAL DAILY PRN PRN PRN Reason: NASAL CONGESTION Guaifenesin (Mucinex) 1,200 mg PO BID [facility] Heparin Sodium (Porcine) (Heparin Na) 5,000 unit SC Q12 GUERLINE Sodium Chloride () 250 mls @ 15 mls/hr IV .[id number] PRN PRN Reason: SALINE FLUSH Azithromycin 250 mg/ Dextrose 252.5 mls @ 250 mls/hr IV Q24 GUERLINE Ceftriaxone Sodium (Rocephin) 1 gm in 50 mls @ 100 mls/hr IV Q24 GUERLINE Magnesium Hydroxide (Milk Of Magnesia) 30 ml PO DAILY PRN PRN Reason: Constipation Metoprolol Tartrate (Lopressor (Beta Alec)) 25 mg PO BID GUERLINE Ondansetron HCl (Zofran) 4 mg IV Q8H PRN PRN PRN Reason: NAUSEA Pancrelipase (Pancrelipase (5000-17,000-27,000)) 1 capsule PO TID GUERLINE Pravastatin Sodium (Pravachol) 40 mg PO QHS GUERLINE Sodium Chloride () 5 - 30 ml IV UD PRN PRN Reason: SALINE FLUSH - Past Medical History Past Medical History (Chronic Problems): Chronic Problems (Last Reviewed 10/07/17 @ 12:39 by Krissy Stratton) End stage renal disease (Chronic) DM2 (diabetes mellitus, type 2) (Chronic) HTN (hypertension) (Chronic) - Past Surgical History Surgical History: - - Left arm AV fistula - Social History Marital Status: Smoking Status: Former smoker Alcohol: None Drugs: None - Family History Paternal History Items: Diabetes Review of Systems Constitutional: Reports: Anorexia, Chills, Fever, Malaise, Weakness, Fatigue HEENT: Denies: Head Aches Cardiovascular: Denies: Chest Pain, Edema Respiratory: Denies: Cough, Shortness of Breath Gastrointestinal: Denies: Abdominal Pain, Constipation, Diarrhea, Nausea, Vomiting Genitourinary: Denies: Dysuria Musculoskeletal: Denies: Back Pain, Joint swelling Skin: Denies: Rash Neurological: Reports: Confusion, - - Shaking chills. Denies: Tremor Psychiatric: Denies: Anxiety, Depression Endocrine: Reports: - - Diabetic Hematologic/ Lymphatic: Reports: Anemia Patient Problems: Active and Suspected Problems (Last Reviewed 10/07/17 @ 12:39 by Krissy Stratton) HCAP (healthcare-associated pneumonia) (Acute) Sepsis (Acute) Metabolic encephalopathy (Acute) - Physical Exam General: Alert, Cooperative, No apparent distress, Well developed, Well nourished, Confused, Disoriented HEENT: PERRLA, EOMI Oral: Dry Mucosa Neck: Supple Lungs: Rales - Faint crackles at bases Cardiovascular: Regular rate, Murmur Abdomen: Bowel Sounds Present, Soft, Non Tender, Non-Distended Extremities: No edema, - - AV fistula with good thrill and bruit Musculoskeletal: Muscle Wasting Psych/Mental Status: Appropriate, - - Used Vital Signs Temp Pulse Resp BP Pulse Ox 98.6 F 71 16 112/58 L 92 11/18/17 06:19 11/18/17 07:06 11/18/17 06:51 11/18/17 06:19 11/18/17 06:51 Oxygen Flow Rate (L/min) 2 Oxygen Delivery Method Room Air Weight: 71.849 kg Body Mass Index (BMI) 24.8 Intake and Output for Last 24 Hours 11/16/17 11/17/17 11/18/17 23:59 23:59 23:59 Intake Total 562 / 562 Balance 562 / 562 Microbiology Past 72 Hours 11/18/17 04:40 C. difficile DNA Amplification - Final Stool 11/18/17 00:25 Influenza Types A,B Direct FA (AMOL) - Final Mucosa - Nasopharyngeal Laboratory Tests Past 24 Hrs 11/18/17 11/18/17 05:20 05:20 WBC 19.4 H RBC 3.74 L Hgb 10.8 L Hct 34.2 L MCV 91.4 MCH 28.9 MCHC 31.6 L RDW 16.2 H RDW Differential 52.0 H Plt Count 238 MPV 10.0 Sodium 136 Potassium 4.6 Chloride 96 L Carbon Dioxide 30.0 Anion Gap 10 BUN 38 H Creatinine 5.12 H Estim Creat Clear Calc 14.88 Est GFR (MDRD) Af Amer 15 L Est GFR (MDRD) Non-Af 13 L BUN/Creatinine Ratio 7.4 L Glucose 142 H Calcium 7.9 L POC Glucose 11/18/17 01:18 POC Glucose 73 Assessment/Plan Active and Suspected Problems (Last Reviewed 10/07/17 @ 12:39 by Krissy Stratton) HCAP (healthcare-associated pneumonia) (Acute) Sepsis (Acute) Metabolic encephalopathy (Acute) 1. ESRD hemodialysis Thursday, , Thursday. Last dialysis yesterday. Next dialysis on . 2. Sepsis with fever and leukocytosis + strep pneumonia in urine, GPC in blood. Continue with IV antibiotic therapy. Check Vanco level prior to re- dosing 3. Confusion likely due to infectious process 4. DM type II primary management 5. Hypertension with stable blood pressure 6. Pancreatic insufficiency on Creon 7. Anemia hemoglobin stable BRITNEY therapy per chronic orders.
[2017-11-18] MEDS: Ceftriaxone 1 GM/50 ML BAG IV (10:22)
[2017-11-18] MEDS: Metoprolol Tartrate 25 MG Tablet PO ×2 (11:07→22:25)
[2017-11-18] MEDS: Heparin Injection (Vial) 5,000 UNIT/ML VIAL 5000 UNIT SC ×2 (11:07→22:10)
[2017-11-18] MEDS: guaiFENesin 1,200 MG Tablet 1200 MG PO ×2 (11:08→22:10)
--- NOTE | 2017-11-18 13:21 | CASEMGMT ---
Face to Face with patient for initial transition planning/care coordination assessment. RN MIKA introduced self and role at [facility], pt voices understanding and consents to assessment at this time. Pt is sleeping at this time in no distress at this time. Daughter at bedside and answers all questions for pt at this time. Care providers, pharmacy, and demographics verified. See attached link. Pt voices no further concerns/needs at this time. Advised pt to ask for CM if any further questions/concerns/needs arise, voices understanding. CM to follow for any further discharge planning/needs. PLAN: [place] [facility]
--- NOTE | 2017-11-18 17:24 | CCHN_ITS ---
Hospitalist Note She was seen and examined today, patient's blood culture grew out strep pyogenes , patient's urine culture is positive for strep pneumoniae. Patient is currently on Rocephin, I stopped his Zithromax and vancomycin today. Patient appears nontoxic at this time, patient's white blood cell count was elevated this morning. I spent some time talking with the patient's family and the patient concerning his medical care, patient has some confusion this afternoon- patient's stated that over the last several days he has been acting somewhat confused about certain things. This may be due to his current sepsis. Lab will be repeated in the morning as well as his chest x-ray.
[2017-11-18] MEDS: Acetaminophen 325 MG Tablet 650 MG PO (18:38)
[2017-11-18] MEDS: Magnesium Hydroxide 30 ML UDC PO (20:30)
[2017-11-18] MEDS: 0.9% NaCl Peripheral Flush Adult/Peds IV (20:30)
[2017-11-18] MEDS: Pravastatin 40 MG Tablet PO (22:11)
[2017-11-18] MEDS: Doxazosin 4 MG Tablet PO (22:25)
[2017-11-19] VITALS (9 sets, daily range): BP systolic 105–157; BP diastolic 53–74; PULSE 58–81; RESP 14–18; TEMP 36.1–36.6; O2SAT 95–96
[2017-11-19] MEDS: Calcium Acetate 667 MG Capsule PO ×2 (05:24→14:14)
[2017-11-19 06:38] LABS: Hemoglobin 10.3 g/dl (13.0-16.5); Mean Corp Hgb Conc 32.2 g/gl (32-36); Mean Corpuscular Hgb 28.8 pg (27.0-32.0); Mean Corpuscular Volume 89.4 fL (80-94); Platelet Count 232 K/mm3 (150-450); RBC Distribution Width CV 16.5 % (11.6-14.6); RBC Distribution Width SD 52.5 fl (35.1-43.9); Red Blood Count 3.58 M/mm3 (4.6-6.2); White Blood Count 12.8 K/mm3 (4.4-11.0)
[2017-11-19 06:39] LABS: Scan Indicated on CBC? Y/N NO
[2017-11-19 06:57] LABS: Albumin, Serum 2.6 g/dL (3.2-5.0); BUN 56 mg/dL (7-18); BUN/Creat Ratio 8.8 RATIO (10-20); Chloride 95 mmol/L (98-107); Creatinine, Serum 6.37 mg/dL (0.70-1.30); EST Glomerular Filtration Rate 10 mL/min (>60); Est Glom Filt Rate - Afr Amer 12 mL/min (>60); Estimated Creatinine Clearance 11.96 ml/min; Glucose 67 mg/dL (74-106); Phosphorus 4.8 mg/dL (2.5-4.9); Potassium 4.5 mmol/L (3.5-5.1); Sodium Level 136 mmol/L (136-145); Vancomycin, Random Level 14.1 ug/mL (0.0-15.0)
[2017-11-19] MEDS: Ipratropium/Albuterol Sulfate 3 ML AMPUL.NEB INHALATION ×2 (07:04→11:12)
--- NOTE | 2017-11-19 07:30 | RAD_ITS ---
STUDY: X-RAY CHEST REASON FOR EXAM: Male, 52 years old. Cough. Shortness of breath. TECHNIQUE: PA and lateral views of the chest. COMPARISON: Comparison is made with prior examination dated November 17, 2017. FINDINGS: EKG electrodes are seen. Stable elevation of the right hemidiaphragm. Persistent right lower lobe infiltrate. Increased markings in the left lung base suggestive of atelectasis and/or infiltrate. Further follow-up is recommended. There is no demonstrated pleural abnormality. There is mild cardiac enlargement. Normal mediastinum and marie. Normal visualized pulmonary arteries. There is atherosclerotic calcification of the aortic arch with tortuosity. Normal visualized thoracic spine. Normal visualized ribs, clavicles, and shoulders. There is no demonstrated abnormality of the visualized soft tissue structures of the upper abdomen. RAD/Chest PA and Lateral IMPRESSION: Persistent right lower lobe atelectasis and/or infiltrate with increased markings at the left lung base. Electronically Signed: Vu Espinoza MD at 9:28 EDT Tel [phone], Service support ,
--- NOTE | 2017-11-19 08:49 | PCM.PN.REN ---
Patient Problems: Active and Suspected Problems (Last Reviewed 10/07/17 @ 12:39 by Krissy Stratton) HCAP (healthcare-associated pneumonia) (Acute) Sepsis (Acute) Metabolic encephalopathy (Acute) Subjective: feeling better, less confusion. Denied cough - Physical Exam General: Alert, Oriented x3, Cooperative, No apparent distress Neck: Supple Lungs: Clear to auscultation Cardiovascular: Regular rate, Murmur Abdomen: Bowel Sounds Present, Soft, Non Tender, Non-Distended Extremities: No edema, - - AVF left forearm Musculoskeletal: Muscle Wasting Neurological: Cranial nerves II-XII grossly intact Psych/Mental Status: Normal Affect, Appropriate, Alert and oriented to time, place, person, mood and affect Vital Signs Temp Pulse Resp BP Pulse Ox 97.8 F 65 18 105/53 L 96 11/19/17 05:15 11/19/17 07:17 11/19/17 07:04 11/19/17 05:15 11/19/17 07:04 Oxygen Flow Rate (L/min) 2 Oxygen Delivery Method Nasal Cannula Weight: 71.849 kg Body Mass Index (BMI) 24.8 Intake and Output for Last 24 Hours 11/17/17 11/18/17 11/19/17 23:59 23:59 23:59 Intake Total 962 / 962 60 / 60 Output Total 0 / 0 Balance 962 / 962 60 / 60 Microbiology Past 72 Hours 11/18/17 04:40 C. difficile DNA Amplification - Final Stool 11/18/17 00:25 Influenza Types A,B Direct FA (AMOL) - Final Mucosa - Nasopharyngeal Laboratory Tests Past 24 Hrs 11/19/17 11/19/17 11/19/17 06:05 06:05 06:05 WBC 12.8 H RBC 3.58 L Hgb 10.3 L Hct 32.0 L MCV 89.4 MCH 28.8 MCHC 32.2 RDW 16.5 H RDW Differential 52.5 H Plt Count 232 MPV 10.0 Sodium 136 Potassium 4.5 Chloride 95 L Carbon Dioxide 29.0 BUN 56 H Creatinine 6.37 H Estim Creat Clear Calc 11.96 Est GFR (MDRD) Af Amer 12 L Est GFR (MDRD) Non-Af 10 L BUN/Creatinine Ratio 8.8 L Glucose 67 L Calcium 8.0 L Phosphorus 4.8 Albumin 2.6 L Random Vancomycin 14.1 Medical Necessity - Tobacco Use Smoking Status: Former smoker Tobacco Use: Chew Assessment/Plan Active and Suspected Problems (Last Reviewed 10/07/17 @ 12:39 by Krissy Stratton) HCAP (healthcare-associated pneumonia) (Acute) Sepsis (Acute) Metabolic encephalopathy (Acute) 1. ESRD hemodialysis Thursday, , Thursday. dialysis today 2. Sepsis with fever and leukocytosis + strep pneumonia in urine, strep pyogenes in blood. Continue with IV antibiotic therapy. 3. Confusion likely due to infectious process. symptoms improved 4. DM type II primary management 5. Hypertension with stable blood pressure. 6. Pancreatic insufficiency on Creon 7. Anemia hemoglobin stable BRITNEY therapy per chronic orders. addendum: seen on dialysis at 11:45. Hold amlodipine on discharge to home for low BP. DW primary service
[2017-11-19] MEDS: Loperamide 2 MG Capsule 4 MG PO (11:08)
[2017-11-19] MEDS: Calcitriol 0.25 MCG Capsule PO (11:09)
[2017-11-19] MEDS: Heparin 10,000 UNITS/10 ML Vial 6000 UNITS IV (11:09)
--- NOTE | 2017-11-19 11:20 | PCM.DC ---
- Discharge Diagnoses Current Active Problems: Current Active and Chronic Problems (Last Reviewed 10/07/17 @ 12:39 by Krissy Stratton) End stage renal disease (Chronic) DM2 (diabetes mellitus, type 2) (Chronic) HTN (hypertension) (Chronic) HCAP (healthcare-associated pneumonia) (Acute) Sepsis (Acute) Metabolic encephalopathy (Acute) You will use the following diet at home:: Other - resume previous diet Your food should be the consistency of: Regular Your liquids should be the consistency of: Regular/Thin Discharge Activity: Return to Normal Activity Weight Bearing Status: Full weight bearing Allergies/Adverse Reactions: Allergies No Known Allergies Allergy (Verified 11/18/17 02:12) Medications to take at Discharge Doxazosin Mesylate [Cardura] 4 mg PO QHS 08/20/15 Lisinopril [Zestril] 40 mg PO QHS 08/20/15 Minoxidil [Loniten] 2.5 mg PO BID 08/20/15 Pravastatin [Pravachol] 40 mg PO QHS 08/20/15 Calcium Acetate [Phoslo Gel Cap] 667 mg PO TID 04/24/16 Dicyclomine HCl [Bentyl] 10 mg PO PRN PRN 04/24/16 Diphenoxylate HCl/Atropine [Lomotil 2.5-0.025 mg Tablet] 1 ea PO PRN PRN 04/24/16 Simethicone [Gas-X] 80 mg PO PRN PRN 04/24/16 Bacitracin 28.4 gm TP TID #1 oint...g. 08/12/17 fluticasone 50 mcg/actuation nasal spray,suspension 50 mcg INTRANASAL QDAY PRN 09/21/17 [id number] 3,000-9,500-15,000 unit capsule,delayed releas 1 cap PO TID cap 09/21/17 metoprolol tartrate 50 mg tablet 25 mg PO BID tab 09/21/17 vitamin B complex and vitamin C no.20-folic acid 1 mg capsule 1 cap PO QDAY 09/21/17 Ergocalciferol [Vitamin D] 50,000 unit PO Q7D 11/18/17 Loperamide [Imodium] 2 mg PO Q8H PRN PRN 11/18/17 Cefdinir [Omnicef [equiv]] 300 mg PO QODAY #4 cap 11/19/17 The following prescriptions were given: Cefdinir [Omnicef [equiv]] 300 mg PO QODAY #4 cap Primary Care Physician: Jimmy Gleason MD [Primary Care Provider] - Please follow up with your Primary Care Physician in: next week-get another chest x-ray done next week
--- NOTE | 2017-11-19 12:39 | PCM.HP.ID ---
Problem List (1) Sepsis Status: Acute Reason for Consult: (+) bcx Consulted by: Dr. Frausto History of Present Illness: The patient is a 52 year old M with ESRD who presented 11/18 with 3-4 days of not feeling well, cough, fever, SOB. No issues with LUE fistula. Came to ED, fever over 101. Found to have pneumonia. Urine legionella (+). Single Bcx with GAS. Feeling better, no further fever. On vanc, ceftriaxone, azithro, now narrowed to ceftriaxone. Full ROS performed and neg except as noted above. - Medical History Past Medical History (Chronic Problems): Chronic Problems (Last Reviewed 10/07/17 @ 12:39 by Krissy Stratton) End stage renal disease (Chronic) DM2 (diabetes mellitus, type 2) (Chronic) HTN (hypertension) (Chronic) Allergies/Adverse Reactions: Allergies No Known Allergies Allergy (Verified 11/18/17 02:12) Home Medications: Ambulatory Orders Medication Instructions Recorded Doxazosin Mesylate [Cardura] 4 mg PO QHS 08/20/15 Lisinopril [Zestril] 40 mg PO QHS 08/20/15 Minoxidil [Loniten] 2.5 mg PO BID 08/20/15 Pravastatin [Pravachol] 40 mg PO QHS 08/20/15 Calcium Acetate [Phoslo Gel Cap] 667 mg PO TID 04/24/16 Dicyclomine HCl [Bentyl] 10 mg PO PRN PRN 04/24/16 Diphenoxylate HCl/Atropine 1 ea PO PRN PRN 04/24/16 [Lomotil 2.5-0.025 mg Tablet] Simethicone [Gas-X] 80 mg PO PRN PRN 04/24/16 Bacitracin 28.4 gm TP TID #1 oint...g. 08/12/17 fluticasone 50 mcg/actuation nasal 50 mcg INTRANASAL QDAY PRN 09/21/17 spray,suspension [id number] 1 cap PO TID cap 09/21/17 3,000-9,500-15,000 unit capsule,delayed releas metoprolol tartrate 50 mg tablet 25 mg PO BID tab 09/21/17 vitamin B complex and vitamin C 1 cap PO QDAY 03/19/18 no.20-folic acid 1 mg capsule Ergocalciferol [Vitamin D] 50,000 unit PO Q7D 11/18/17 Loperamide [Imodium] 2 mg PO Q8H PRN PRN 11/18/17 Cefdinir [Omnicef [equiv]] 300 mg PO QODAY #4 cap 11/19/17 - Social History SMOKING STATUS:: Former smoker Vital Signs Temp Pulse Resp BP Pulse Ox 97.8 F 77 18 157/64 H 96 11/19/17 11:02 11/19/17 11:14 11/19/17 11:12 11/19/17 11:02 11/19/17 11:02 Oxygen Flow Rate (L/min) 1.5 Oxygen Delivery Method Nasal Cannula Weight: 71.849 kg Body Mass Index (BMI) 24.8 Microbiology Past 72 Hours 11/18/17 04:40 C. difficile DNA Amplification - Final Stool 11/18/17 00:25 Influenza Types A,B Direct FA (AMOL) - Final Mucosa - Nasopharyngeal Laboratory Tests Past 24 Hrs 11/19/17 11/19/17 11/19/17 06:05 06:05 06:05 WBC 12.8 H RBC 3.58 L Hgb 10.3 L Hct 32.0 L MCV 89.4 MCH 28.8 MCHC 32.2 RDW 16.5 H RDW Differential 52.5 H Plt Count 232 MPV 10.0 Sodium 136 Potassium 4.5 Chloride 95 L Carbon Dioxide 29.0 BUN 56 H Creatinine 6.37 H Estim Creat Clear Calc 11.96 Est GFR (MDRD) Af Amer 12 L Est GFR (MDRD) Non-Af 10 L BUN/Creatinine Ratio 8.8 L Glucose 67 L Calcium 8.0 L Phosphorus 4.8 Albumin 2.6 L Random Vancomycin 14.1 - Other Studies Radiology: [] reviewed Other Studies: [] Route of nutrition/ use of supplements: [] Nutritional Intake: [] IV Site: [] Salgado Catheter: [] - Physical Exam General: Alert, Cooperative, No apparent distress HEENT: Atraumatic, PERRLA, EOMI Neck: Supple, No Nodes Lungs: Diminished Cardiovascular: Regular rate, Regular Rhythm Abdomen: Bowel Sounds Present, Soft, Non Tender, Non-Distended Extremities: No edema Skin: No rashes IV Site: Peripheral, without redness Musculoskeletal: No Tenderness to Palpation of Joints or Extremities Neurological: Cranial nerves II-XII grossly intact - Assessment/Plan Antibiotics: [] Assessment/Plan: [] Active and Suspected Problems (Last Reviewed 10/07/17 @ 12:39 by Krissy Stratton) HCAP (healthcare-associated pneumonia) (Acute) Sepsis (Acute) Metabolic encephalopathy (Acute) CAP with single GAS in Bcx and urine (+) s. pneumo - much improved. Ok for d/c home on po omnicef q48 for 4 more doses. Thank you, will follow, d/w primary team.
[2017-11-19] MEDS: guaiFENesin 1,200 MG Tablet 1200 MG PO (14:13)
[2017-11-19] MEDS: Metoprolol Tartrate 25 MG Tablet PO (14:13)
[2017-11-19] MEDS: Ceftriaxone 1 GM/50 ML BAG IV (14:13)
--- NOTE | 2017-11-19 14:48 | DIALYSIS ---
HD x 3 hours and 45 min complete. Tolerated tx well. UF of 2000ml. Used lower left arm fistula. Fincastle removed post tx. Pressure applied to both sites. Hemostasis achieved. See tx sheet for more details. Report was given to NILO Arroyo.
--- NOTE | 2017-11-19 17:20 | PCM.DC.SUM ---
Discharge Date and Diagnosis Date of Admission: 11/17/17 Date of Discharge: 11/19/17 - Primary Discharge Diagnosis #1 acute sepsis secondary to strep pneumoniae from right lower lobe community-acquired pneumonia #2 right lower lobe community-acquired pneumonia from strep pneumoniae #3 bacteremia from strep pyogenes-etiology unclear #4 metabolic encephalopathy secondary to sepsis #5 end-stage renal disease requiring dialysis #6 type 2 diabetes #7 hypertension - Secondary Discharge Diagnosis Chronic Problems (Last Reviewed 10/07/17 @ 12:39 by Krissy Stratton) End stage renal disease (Chronic) DM2 (diabetes mellitus, type 2) (Chronic) HTN (hypertension) (Chronic) Hospital Course and Treatment Operations: None Procedures: Dialysis Summary of Care Provided: The patient is a 52 year old M was seen in the emergency room at [facility] with a chief complaint of confusion, patient had dialysis and went home and afterwards his family stated that he had trouble with short-term memory. They also reported that he was having fever and acting appropriately. Evaluation in the emergency room showed his temperature to be 101.8, white count was 11.4, bilirubin was 1.4, and alkaline phosphatase was 373. Troponin and lactic acid were normal, chest x-ray showed a right lower lobe infiltrate concerning for pneumonia. Patient was treated with IV Zosyn and vancomycin and admitted to PCU for acute sepsis and metabolic encephalopathy secondary to sepsis. He was seen in consultation by nephrology, urine antigen was obtained for strep pneumoniae was positive. Patient had blood cultures obtained and 1 culture was positive for strep pyogenes. He was seen in consultation by infectious diseases. Patient was treated with IV Rocephin while in the hospital. He also underwent dialysis. On 11/19/17, patient was seen and examined and felt to be in stable condition for discharge home. The source of the patient's sepsis was felt to be a right lower lobe community-acquired pneumonia secondary to strep pneumoniae. The significance of the patient's positive blood culture was unknown Discharge Activity: Return to Normal Activity Weight Bearing Status: Full weight bearing Home Medications: Medications to take at Discharge Doxazosin Mesylate [Cardura] 4 mg PO QHS 08/20/15 Lisinopril [Zestril] 40 mg PO QHS 08/20/15 Minoxidil [Loniten] 2.5 mg PO BID 08/20/15 Pravastatin [Pravachol] 40 mg PO QHS 08/20/15 Calcium Acetate [Phoslo Gel Cap] 667 mg PO TID 04/24/16 Dicyclomine HCl [Bentyl] 10 mg PO PRN PRN 04/24/16 Diphenoxylate HCl/Atropine [Lomotil 2.5-0.025 mg Tablet] 1 ea PO PRN PRN 04/24/16 Simethicone [Gas-X] 80 mg PO PRN PRN 04/24/16 Bacitracin 28.4 gm TP TID #1 oint...g. 08/12/17 fluticasone 50 mcg/actuation nasal spray,suspension 50 mcg INTRANASAL QDAY PRN 09/21/17 [id number] 3,000-9,500-15,000 unit capsule,delayed releas 1 cap PO TID cap 09/21/17 metoprolol tartrate 50 mg tablet 25 mg PO BID tab 09/21/17 vitamin B complex and vitamin C no.20-folic acid 1 mg capsule 1 cap PO QDAY 09/21/17 Ergocalciferol [Vitamin D] 50,000 unit PO Q7D 11/18/17 Loperamide [Imodium] 2 mg PO Q8H PRN PRN 11/18/17 Cefdinir [Omnicef [equiv]] 300 mg PO QODAY #4 cap 11/19/17 Following Prescrptions Were Given to Patient: Cefdinir [Omnicef [equiv]] 300 mg PO QODAY #4 cap Primary Care Physician: Jimmy Gleason MD [Primary Care Provider] - Please follow up with your Primary Care Physician in: next week-get another chest x-ray done next week Please Follow Up With: Jimmy Gleason MD Disposition: Home Minutes spent on discharge:: 34 Patient Condition:: Stable Medical Necessity - Tobacco Use Smoking Status: Former smoker Tobacco Use: Chew Meaningful Use Info Meaningful Use Diagnoses (Choose all that apply): None applicable Code Visit Inpatient E&M: 97625 Disch Hosp
--- NOTE | 2017-11-19 17:26 | DS.PCM_ITS ---
Discharge Date and Diagnosis Date of Admission: 11/17/17 Date of Discharge: 11/19/17 - Primary Discharge Diagnosis #1 acute sepsis secondary to strep pneumoniae from right lower lobe community- acquired pneumonia #2 right lower lobe community-acquired pneumonia from strep pneumoniae #3 bacteremia from strep pyogenes-etiology unclear #4 metabolic encephalopathy secondary to sepsis #5 end-stage renal disease requiring dialysis #6 type 2 diabetes #7 hypertension - Secondary Discharge Diagnosis Chronic Problems (Last Reviewed 10/07/17 @ 12:39 by Krissy Stratton) End stage renal disease (Chronic) DM2 (diabetes mellitus, type 2) (Chronic) HTN (hypertension) (Chronic) Hospital Course and Treatment Operations: None Procedures: Dialysis Summary of Care Provided: The patient is a 52 year old M was seen in the emergency room at [facility] with a chief complaint of confusion, patient had dialysis and went home and afterwards his family stated that he had trouble with short- term memory. They also reported that he was having fever and acting appropriately. Evaluation in the emergency room showed his temperature to be 101.8, white count was 11.4, bilirubin was 1.4, and alkaline phosphatase was 373. Troponin and lactic acid were normal, chest x-ray showed a right lower lobe infiltrate concerning for pneumonia. Patient was treated with IV Zosyn and vancomycin and admitted to PCU for acute sepsis and metabolic encephalopathy secondary to sepsis. He was seen in consultation by nephrology, urine antigen was obtained for strep pneumoniae was positive. Patient had blood cultures obtained and 1 culture was positive for strep pyogenes. He was seen in consultation by infectious diseases. Patient was treated with IV Rocephin while in the hospital. He also underwent dialysis. On 11/19/17, patient was seen and examined and felt to be in stable condition for discharge home. The source of the patient's sepsis was felt to be a right lower lobe community-acquired pneumonia secondary to strep pneumoniae. The significance of the patient's positive blood culture was unknown Discharge Activity: Return to Normal Activity Weight Bearing Status: Full weight bearing Home Medications: Medications to take at Discharge Doxazosin Mesylate [Cardura] 4 mg PO QHS 08/20/15 Lisinopril [Zestril] 40 mg PO QHS 08/20/15 Minoxidil [Loniten] 2.5 mg PO BID 08/20/15 Pravastatin [Pravachol] 40 mg PO QHS 08/20/15 Calcium Acetate [Phoslo Gel Cap] 667 mg PO TID 04/24/16 Dicyclomine HCl [Bentyl] 10 mg PO PRN PRN 04/24/16 Diphenoxylate HCl/Atropine [Lomotil 2.5-0.025 mg Tablet] 1 ea PO PRN PRN Simethicone [Gas-X] 80 mg PO PRN PRN 04/24/16 Bacitracin 28.4 gm TP TID #1 oint...g. 08/12/17 fluticasone 50 mcg/actuation nasal spray,suspension 50 mcg INTRANASAL QDAY PRN 09/21/17 [id number] 3,000-9,500-15,000 unit capsule,delayed releas 1 cap PO TID cap 09/21/17 metoprolol tartrate 50 mg tablet 25 mg PO BID tab 09/21/17 vitamin B complex and vitamin C no.20-folic acid 1 mg capsule 1 cap PO QDAY Ergocalciferol [Vitamin D] 50,000 unit PO Q7D 11/18/17 Loperamide [Imodium] 2 mg PO Q8H PRN PRN 11/18/17 Cefdinir [Omnicef [equiv]] 300 mg PO QODAY #4 cap 11/19/17 Following Prescrptions Were Given to Patient: Cefdinir [Omnicef [equiv]] 300 mg PO QODAY #4 cap Primary Care Physician: Jimmy Gleason MD [Primary Care Provider] - Please follow up with your Primary Care Physician in: next week-get another chest x-ray done next week Please Follow Up With: Jimmy Gleason MD Disposition: Home Minutes spent on discharge:: 34 Patient Condition:: Stable Medical Necessity - Tobacco Use Smoking Status: Former smoker Tobacco Use: Chew Meaningful Use Info Meaningful Use Diagnoses (Choose all that apply): None applicable Code Visit Inpatient E&M: 04291 Disch Hosp
--- NOTE | 2017-11-20 15:36 | CASEMGMT ---
NILO BRENNAN DC F/U phone call. Intro role of CM to patient via phone. PT states he is much improved, no questions re: prescriptions, f/u appointments. discussed antibiotic and taking complete course. pt is aware. Pt states his care was very good, no suggestions given for changes. NILO BRENNAN thanked him for choosing [facility]. Daina GARCESN NILO ACM
== END 2017-11-19 15:23 | disposition home or self-care (01) | DRG 871 ==
LOC: ED 22:26 → PCU 11-18 00:19
PROVIDERS: Internal Medicine Nephrology; Emergency Provider Emergency Medicine; Family Provider Family Medicine; PCP Family Medicine; Visit Provider Internal Medicine
DX: A41.9 Sepsis, unspecified organism (principal); J13 Pneumonia due to Streptococcus pneumoniae; G93.41 Metabolic encephalopathy; N18.6 End stage renal disease; I12.0 Hypertensive chronic kidney disease with stage 5 chronic kidney disease or end stage renal disease; R18.8 Other ascites; E11.22 Type 2 diabetes mellitus with diabetic chronic kidney disease; K86.89 Other specified diseases of pancreas; Z99.2 Dependence on renal dialysis; Z87.891 Personal history of nicotine dependence; Z79.899 Other long term (current) drug therapy
CPT/HCPCS: 36415; 70450; 71045; 71046; 74176; 76705; 80048; 80053; 80069; 80202; 81001; 82140; 82962; 83605; 84484; 85025; 85027; 85610; 85730; 87040; 87086; 87149; 87186; 87449; 87493; 87804; 90937; 93005; 94640; 94667; 99285; J7030; J7040; J7050; P9612; A4216; G0257

== ENCOUNTER → 2018-06-14 08:35 | Outpatient (CLI) | payer MEDICARE, MEDICAID, SELFPAY ==
[2018-06-14 08:35] VITALS: BMI 24.3
--- NOTE | 2018-06-14 09:08 | EKG12_ITS ---
Test Reason : PRE-OP Blood Pressure : / mmHG Vent. Rate : 064 BPM Atrial Rate : 064 BPM P-R Int : 160 ms QRS Dur : 090 ms QT Int : 488 ms P-R-T Axes : 046 -14 011 degrees QTc Int : 503 ms Normal sinus rhythm Abnormal ECG Confirmed by FRACISCO MIMS, LAURYN ([id number]), publication editor MLIVIA CERDA ([id number]) on 06/15/2018 9:02:55 AM Referred By: Lamont Antunez Confirmed By:ALURYN YAP MD
[2018-06-14 10:22] LABS: Hematocrit 32.8 % (40-54); Hemoglobin 10.6 g/dl (13.0-16.5); Mean Corp Hgb Conc 32.3 g/gl (32-36); Mean Corpuscular Hgb 29.2 pg (27.0-32.0); Mean Corpuscular Volume 90.4 fL (80-94); Mean Platelet Vol. 10.1 fl (6.2-12.0); Platelet Count 250 K/mm3 (150-450); RBC Distribution Width CV 16.1 % (11.6-14.6); RBC Distribution Width SD 52.5 fl (35.1-43.9); Red Blood Count 3.63 M/mm3 (4.6-6.2); White Blood Count 3.8 K/mm3 (4.4-11.0)
[2018-06-14 10:23] LABS: Scan Indicated on CBC? Y/N NO
[2018-06-14 10:51] LABS: Anion Gap 10 (5-15); BUN 60 mg/dL (7-18); BUN/Creat Ratio 9.6 RATIO (10-20); Calcium,Total 7.9 mg/dL (8.5-10.1); Chloride 100 mmol/L (98-107); Creatinine, Serum 6.28 mg/dL (0.70-1.30); EST Glomerular Filtration Rate 10 mL/min (>60); Est Glom Filt Rate - Afr Amer 12 mL/min (>60); Glucose 62 mg/dL (74-106); Potassium 4.4 mmol/L (3.5-5.1); Sodium Level 139 mmol/L (136-145)
== END ==
PROVIDERS: Family Provider Family Medicine; PCP Family Medicine; Referring Provider Orthopaedic Surgery; Visit Provider Orthopaedic Surgery
DX: Z01.818 Encounter for other preprocedural examination (principal); Z01.810 Encounter for preprocedural cardiovascular examination
CPT/HCPCS: 36415; 80048; 85027; 93005

== ENCOUNTER → 2018-06-17 09:43 | Outpatient (CLI) | payer MEDICARE, MEDICAID, SELFPAY ==
[2018-06-14 08:35] VITALS: BMI 24.3
--- NOTE | 2018-06-17 09:43 | BUR_PTH ---
PATIENT: RODRÍGUEZ MANTILLA [id number] AGE/SX: 60/M ROOM: RE06/17/[address]: Dr. Lamont Antunez DO : 1965 BED: DIS: SPEC #: [id number] RECD: 06/17/18 16:21 STATUS: MARIVEL CARA #: [id number] RUKHSANA: 06/17/18 09:[address]: Lamont Antunez DEPT: SURGICAL PATHOLOGY RECD BY: Andrea Moore ENTERED: 06/18/18 10:19 SP TYPE: BURSA OTHR DR: Dr. 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 AM:howard 06/21/18 MICROSCOPIC DESCRIPTION Slides are reviewed. GROSS DESCRIPTION Received is one container labeled with the patient's name and not further designated. The specimen consists of a piece of morgan, indurated tissue measuring 5 x 3.5 x 2 cm. Sections reveal hemorrhagic cut surfaces surrounded by a thick capsule. Personnel Officer sections are submitted in five cassettes. / SJ:howard 06/18/18 TC:3 CPT: 29395
--- OUTSIDE RECORDS SUMMARY | 2018-08-03 21:17 | XMS RPT_ITS ---
:1965 Author Organization OHIP Support Name Relationship Address Phone D Unavailable Unavailable Unavailable JOSE RAFAELRIZWAN Unavailable [address] + [place] [address] JOSE RAFAEL, EARNEST Unavailable [address] + [place] [address] D Unavailable Unavailable Unavailable JOSE RAFAELSADIIE Unavailable [address] + [place] [address] JOSE RAFAEL, EARNEST Unavailable [address] + [place] [address] D Unavailable Unavailable Unavailable JOSE RAFAEL RIZWAN Unavailable [address] + [place] [address] JOSE RAFAEL, EARNEST Unavailable [address] + [place] [address] D Unavailable Unavailable Unavailable JOSE RAFAELSADIIE Unavailable [address] + [place] [address] JOSE RAFAEL, EARNEST Unavailable [address] + [place] [address] D Unavailable Unavailable Unavailable JOSE RAFAEL RIZWAN Unavailable [address] + [place] [address] JOSE RAFAEL, EARNEST Unavailable [address] + [place] [address] D Unavailable Unavailable Unavailable JOSE RAFAEL RIZWAN Unavailable [address] + [place] [address] JOSE RAFAEL, EARNEST Unavailable [address] + [place] [address] D Unavailable Unavailable Unavailable JOSE RAFAEL RIZWAN Unavailable [address] + [place] [address] JOSE RAFAEL, EARNEST Unavailable [address] + [place] [address] D Unavailable Unavailable Unavailable JOSE RAFAEL, RIZWAN Unavailable [address] + [place] [address] JOSE RAFAEL, EARNEST Unavailable [address] + [place] [address] D Unavailable Unavailable Unavailable JOSE RAFAEL, RIZWAN Unavailable [address] + [place] [address] JOSE RAFAEL, EARNEST Unavailable [address] + [place] [address] D Unavailable Unavailable Unavailable JOSE RAFAEL, RIZWAN Unavailable [address] + [place] [address] JOSE RAFAEL, EARNEST Unavailable [address] + [place] [address] D Unavailable Unavailable Unavailable JOSE RAFAEL, RIZWAN Unavailable [address] + [place] [address] JOSE RAFAEL, EARNEST Unavailable [address] + [place] [address] D Unavailable Unavailable Unavailable JOSE RAFAEL, RIZWAN Unavailable [address] + [place] [address] JOSE RAFAEL, EARNEST Unavailable [address] + [place] [address] D Unavailable Unavailable Unavailable JOSE RAFAEL, RIZWAN Unavailable [address] + [place] [address] JOSE RAFAEL, EARNEST Unavailable [address] + [place] [address] Care Team Providers Name Role Phone Lamont Antunez Attending Unavailable Lamont Antunez Referring Unavailable Gleason, Jimmy Primary Care Unavailable Pee Roy Attending Unavailable Lamont Antunez Referring Unavailable Gleason, Jimmy Primary Care Unavailable Alex Kiser Attending Unavailable [employer] PA-C Attending Unavailable Gleason, Jimmy Referring Unavailable Gleason, Jimmy Primary Care Unavailable Rafa Plasencia Attending Unavailable Gleason, Jimmy Referring Unavailable Rafa Plasencia Attending Unavailable Rafa Plasencia Referring Unavailable Gleason, Jimmy Primary Care Unavailable Rafa Plasencia Attending Unavailable Gleason, Jimmy Referring Unavailable Gleason, Jimmy Primary Care Unavailable Gleason, Jimmy Attending Unavailable Gleason, Jimmy Primary Care Unavailable Cebul, Rafa Attending Unavailable Gleason, Jimmy Primary Care Unavailable Jopperi, Jimmy Admitting Unavailable Tereletsky, Porfirio Attending Unavailable Enoch, Leslie Consulting Unavailable Parminder, Rafa Consulting Unavailable Jopperi, Jimmy Admitting Unavailable Jopperi, Jimmy Attending Unavailable Gleason, Jimmy Primary Care Unavailable Jopperi, Jimmy Consulting Unavailable Jopperi, Jimmy Admitting Unavailable Tereletsky, Porfirio Attending Unavailable Gleason, Jimmy Primary Care Unavailable Enoch, Leslie Consulting Unavailable Parminder, Rafa Consulting Unavailable Tereletsky, Porfirio Consulting Unavailable Knapadams, Lamont Attending Unavailable Knapic, Lamont Referring Unavailable Gleason, Jimmy Primary Care Unavailable PROBLEMS PROBLEMS DATE TYPE CONDITION / CODE ATTENDING STATUS SOURCE 06/18/2018 Unknown R94.31 - Abnormal Manuel[place], [place] [facility] electro[facility] [ECG] [EKG] / Hospital R94.31(ICD-10) Repository 06/14/2018 Unknown Z01.818 - Encounter Knapadams, Active [facility] for other [facility] preprocedural Hospital examination / Repository Z01.818(ICD-10) 06/14/2018 Unknown Z01.810 - Encounter [place], [facility] for preprocedural [facility] cardiovascular Hospital examination / Repository Z01.810(ICD-10) 01/21/2018 Unknown J18.9 - Pneumonia, [place], [facility] unspecified organism / [facility] J18.9(ICD-10) Hospital Repository 10/30/2017 Unknown T82.590A - Other Rafa Plasencia Active [facility] mechanical Community complication of Hospital surgically created Repository arteriovenous fistula, initial encounter / T82.590A(ICD-10) PROCEDURES PROCEDURES No Procedure Records FoundRESULTS RESULTS BURSA/SYNOVIAL CYST Observed: 06/17/2018 Status: F Source: [place] 9:43 AM [facility] HOSPITAL REPOSITORY Patient: TANO MANTILLA : 1965 (53/M) Acct Num: [id number] Phys: Lamont Antunez DO Unit Num: [id number] Loc: LABSPEC Specimen: [id number] Received: 06/17/181620 Spec Type: BURSA TISSUES 1 TISSUES: Elbow, NOS GROSS DESCRIPTION Received is one container labeled with the patient's name and not further designated. The specimen consists of a piece of morgan, indurated tissue measuring 5 x 3.5 x 2 cm. Sections reveal hemorrhagic cut surfaces surrounded by a thick capsule. Paying Teller sections are submitted in five cassettes. / SJ:howard TC:3 CPT: 06044 HEADER OPERATION: Excision large olecranon bursa right elbow PRE-OP DIAGNOSIS: Right elbow olecranon bursa TISSUE SUBMITTED: Right elbow olecranon bursa MICROSCOPIC DESCRIPTION Slides are reviewed. 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 AM:howard 06/21/18 Signed Daryl Monroy DO 06/21/18 <signature on file> Performed By: #### PBUR #### [facility] [address] [place] [address]. [place], [address] 12 LEAD ELECTROCARDIOGRAM Observed: 06/15/2018 Status: F Source: [place] 9:01 AM [facility] REPOSITORY [facility] Cardiovascular Services [address] [place] [address] 12 Lead EKG 06/14/18917 MR#: [id number] Acct: [id number] Name: TANO MANTILLA Rep #: [id number] : 1965 53 From: Pee Roy MD Attending Dr: Lamont Antunez DO Status: REG CLI Ordering Dr: Lamont Antunez DO Date: 06/14/18 Location: LAB Sex: M C Admitted: Test Reason : PRE-OP Blood Pressure : / mmHG Vent. Rate : 064 BPM Atrial Rate : 064 BPM P-R Int : 160 ms QRS Dur : 090 ms QT Int : 488 ms P-R-T Axes : 046 -14 011 degrees QTc Int : 503 ms Normal sinus rhythm Abnormal ECG Confirmed by PEE ROY MD ([id number]), editor magazine [employer] (56) on 06/15/2018 9:02:55 AM Referred By: Lamont Antunez Confirmed By:PEE ROY MD 06/15/18 0902 Date Pee Roy MD CC: Jimmy Gleason MD; Lamont Antunez DO Signed CBC-COMPLETE BLOOD CNT Collected: 06/14/2018 Status: F Source: [place] NO DIFF 8:54 AM [facility] REPOSITORY TYPE CODE TESTS RESULT OUT OF RANGE REFERENCE UNITS LAB L100.1000 4.4-11.0 K/mm3 Low WBC 3.8 LAB L100.1200 4.6-6.2 M/mm3 Low RBC 3.63 LAB L100.1300 13.0-16.5 g/dl Low HGB 10.6 LAB L100.1400 40-54 % Low HCT 32.8 LAB L100.1500 80-94 fL Normal MCV 90.4 LAB L100.1600 27.0-32.0 pg Normal MCH 29.2 LAB L100.1700 32-36 g/gl Normal MCHC 32.3 LAB L100.1810 11.6-14.6 % High RDW CV 16.1 LAB L100.1820 35.1-43.9 fl High RDW SD 52.5 LAB L100.1900 150-450 K/mm3 Normal PLT 250 LAB L100.2000 6.2-12.0 fl Normal MPV 10.1 Performed By: #### L100.0500 #### [facility] [address] [place] [address]. [place], [address] BASIC METABOLIC Collected: 06/14/2018 Status: F Source: [place] PROFILE (BMP) 8:54 AM [facility] REPOSITORY TYPE CODE TESTS RESULT OUT OF RANGE REFERENCE UNITS LAB L501.0100 74-106 mg/dL Low GLU 62 Result Comment: Please note revised GLUCOSE reference range effective 2017. LAB L501.1000 7-18 mg/dL High BUN 60 LAB L501.1100 0.70-1.30 mg/dL High CREAT,SERUM 6.28 Result Comment: The validity of the calculated GFR AND GFRAA in patients over 70 years has not been determined. Clinical correlation is essential. LAB L501.1110 >60 mL/min Low EST GFR 10 Result Comment: Non- GFR Calc LAB L501.1115 >60 mL/min Low EST GFR - AA 12 Result Comment: GFR Calc LAB L501.1300 10-20 RATIO Low BUN/CRE 9.6 LAB L501.2200 8.5-10.1 mg/dL Low CA 7.9 LAB L501.5300 136-145 mmol/L Normal NA 139 LAB L501.5600 3.5-5.1 mmol/L Normal K 4.4 LAB L501.5900 98-107 mmol/L Normal CL 100 LAB L501.6100 21.0-32.0 mmol/L Normal CO2 29.0 LAB L501.6200 5-15 Normal GAP 10 Performed By: #### L500.2500 #### [facility] [address] [place], [address] 12 LEAD ELECTROCARDIOGRAM Observed: 11/20/2017 Status: F Source: [place] 2:05 PM [facility] REPOSITORY [facility] Cardiovascular Services [address] [place] [address] 12 Lead EKG 11/17/172125 MR#: [id number] Acct: [id number] Name: TANO MANTILLA Rep #: [id number] : 1965 52 From: Pee Roy MD Attending Dr: Porfirio Frausto DO Status: DIS IN Ordering Dr: Pritesh Mendez MD Date: 11/17/17 Location: [facility] Sex: M C Admitted: 11/18/17 Test Reason : ALT LOC Blood Pressure : / mmHG Vent. Rate : 085 BPM Atrial Rate : 085 BPM P-R Int : 146 ms QRS Dur : 080 ms QT Int : 398 ms P-R-T Axes : 066 035 004 degrees QTc Int : 473 ms Normal sinus rhythm Low voltage QRS Borderline ECG Confirmed by PEE ROY MD ([id number]), editor magazine [employer] (56) on 11/20/2017 2:05:01 PM Referred By: KAMAR Confirmed By:PEE ROY MD 11/20/17 5300 Date Pee Roy MD CC: Pritesh Mendez MD; Jimmy Gleason MD; Porfirio Frausto DO Signed DISCHARGE SUMMARY Observed: 11/19/2017 Status: F Source: [place] 5:26 PM [facility] REPOSITORY [facility] Medical Records Department [address] [place] [address] Discharge Summary 11/19/17 1720 MR#: [id number] Acct: [id number] Name: TANO MANTILLA Rep #: [id number] : 1965 52 From: Porfirio Frausto DO PCP: Jimmy Gleason MD Status: DIS IN Y Location: [place] [address] Discharge Date and Diagnosis Date of Admission: 11/17/17 Date of Discharge: 11/19/17 - Primary Discharge Diagnosis #1 acute sepsis secondary to strep pneumoniae from right lower lobe community-acquired pneumonia #2 right lower lobe community-acquired pneumonia from strep pneumoniae #3 bacteremia from strep pyogenes-etiology unclear #4 metabolic encephalopathy secondary to sepsis #5 end-stage renal disease requiring dialysis #6 type 2 diabetes #7 hypertension - Secondary Discharge Diagnosis Chronic Problems (Last Reviewed 10/07/17 @ 12:39 by Krissy Stratton) End stage renal disease (Chronic) DM2 (diabetes mellitus, type 2) (Chronic) HTN (hypertension) (Chronic) Hospital Course and Treatment Operations: None Procedures: Dialysis Summary of Care Provided: The patient is a 52 year old M was seen in the emergency room at [facility] with a chief complaint of confusion, patient had dialysis and went home and afterwards his family stated that he had trouble with short-term memory. They also reported that he was having fever and acting appropriately. Evaluation in the emergency room showed his temperature to be 101.8, white count was 11.4, bilirubin was 1.4, and alkaline phosphatase was 373. Troponin and lactic acid were normal, chest x-ray showed a right lower lobe infiltrate concerning for pneumonia. Patient was treated with IV Zosyn and vancomycin and admitted to PCU for acute sepsis and metabolic encephalopathy secondary to sepsis. He was seen in consultation by nephrology, urine antigen was obtained for strep pneumoniae was positive. Patient had blood cultures obtained and 1 culture was positive for strep pyogenes. He was seen in consultation by infectious diseases. Patient was treated with IV Rocephin while in the hospital. He also underwent dialysis. On 11/19/17, patient was seen and examined and felt to be in stable condition for discharge home. The source of the patient's sepsis was felt to be a right lower lobe community-acquired pneumonia secondary to strep pneumoniae. The significance of the patient's positive blood culture was unknown Discharge Activity: Return to Normal Activity Weight Bearing Status: Full weight bearing Home Medications: Medications to take at Discharge Doxazosin Mesylate [Cardura] 4 mg PO QHS 08/20/15 Lisinopril [Zestril] 40 mg PO QHS 08/20/15 Minoxidil [Loniten] 2.5 mg PO BID 08/20/15 Pravastatin [Pravachol] 40 mg PO QHS 08/20/15 Calcium Acetate [Phoslo Gel Cap] 667 mg PO TID 04/24/16 Dicyclomine HCl [Bentyl] 10 mg PO PRN PRN 04/24/16 Diphenoxylate HCl/Atropine [Lomotil 2.5-0.025 mg Tablet] 1 ea PO PRN PRN 04/24/16 Simethicone [Gas-X] 80 mg PO PRN PRN 04/24/16 Bacitracin 28.4 gm TP TID #1 oint...g. 08/12/17 fluticasone 50 mcg/actuation nasal spray,suspension 50 mcg INTRANASAL QDAY PRN 09/21/17 fkvlez-qkmtuipy-nirztal 3,000-9,500-15,000 unit capsule,delayed releas 1 cap PO TID cap 09/21/17 metoprolol tartrate 50 mg tablet 25 mg PO BID tab 09/21/17 vitamin B complex and vitamin C no.20-folic acid 1 mg capsule 1 cap PO QDAY 09/21/17 Ergocalciferol [Vitamin D] 50,000 unit PO Q7D 11/18/17 Loperamide [Imodium] 2 mg PO Q8H PRN PRN 11/18/17 Cefdinir [Omnicef [equiv]] 300 mg PO QODAY #4 cap 11/19/17 Following Prescrptions Were Given to Patient: Cefdinir [Omnicef [equiv]] 300 mg PO QODAY #4 cap Primary Care Physician: Jimmy Gleason MD [Primary Care Provider] - Please follow up with your Primary Care Physician in: next week-get another chest x-ray done next week Please Follow Up With: Jimmy Gleason MD Disposition: Home Minutes spent on discharge:: 34 Patient Condition:: Stable Medical Necessity - Tobacco Use Smoking Status: Former smoker Tobacco Use: Chew Meaningful Use Info Meaningful Use Diagnoses (Choose all that apply): None applicable Code Visit Inpatient E AND M: 17170 Disch Hosp 11/19/17 1726 <Electronically signed by Porfirio Frausto DO> Date Porfirio Frausto DO Cosigner Signature (if applicable): Date CC: Jimmy Gleason MD; Porfirio Frausto DO Signed CONSULTATION Observed: 11/19/2017 Status: F Source: [place] 12:42 PM [facility] REPOSITORY [facility] Medical Records Department [address] [place] [address] Consultation 11/19/17 1239 MR#: [id number] Acct: [id number] Name: TANO MANTILLA Rep #: [id number] : 1965 52 From: Rafa Zurita MD PCP: Jimmy Gleason MD Status: ADM IN Location: [place] [address] Problem List (1) Sepsis Status: Acute Reason for Consult: (+) bcx Consulted by: Dr. Frausto History of Present Illness: The patient is a 52 year old M with ESRD who presented 11/18 with 3-4 days of not feeling well, cough, fever, SOB. No issues with LUE fistula. Came to ED, fever over 101. Found to have pneumonia. Urine legionella (+). Single Bcx with GAS. Feeling better, no further fever. On vanc, ceftriaxone, azithro, now narrowed to ceftriaxone. Full ROS performed and neg except as noted above. - Medical History Past Medical History (Chronic Problems): Chronic Problems (Last Reviewed 10/07/17 @ 12:39 by Krissy Stratton) End stage renal disease (Chronic) DM2 (diabetes mellitus, type 2) (Chronic) HTN (hypertension) (Chronic) Allergies/Adverse Reactions: Allergies No Known Allergies Allergy (Verified 11/18/17 02:12) Home Medications: Ambulatory Orders Medication Instructions Recorded Doxazosin Mesylate [Cardura] 4 mg PO QHS 08/20/15 - Social History SMOKING STATUS:: Former smoker Vital Signs Temp Pulse Resp BP Pulse Ox 97.8 F 77 18 157/64 H 96 11/19/17 11:02 11/19/17 11:14 11/19/17 11:12 11/19/17 11:02 11/19/17 11:02 Oxygen Flow Rate (L/min) 1.5 Oxygen Delivery Method Nasal Cannula Weight: 71.849 kg Body Mass Index (BMI) 24.8 Microbiology Past 72 Hours 11/18/17 04:40 C. difficile DNA Amplification - Final Stool 11/18/17 00:25 Influenza Types A,B Direct FA (AMOL) - Final Mucosa - Nasopharyngeal Laboratory Tests Past 24 Hrs WBC 12.8 H RBC 3.58 L Hgb 10.3 L Hct 32.0 L MCV 89.4 MCH 28.8 MCHC 32.2 RDW 16.5 H RDW Differential 52.5 H - Other Studies Radiology: [] reviewed Other Studies: [] Route of nutrition/ use of supplements: [] Nutritional Intake: [] IV Site: [] Salgado Catheter: [] - Physical Exam General: Alert, Cooperative, No apparent distress HEENT: Atraumatic, PERRLA, EOMI Neck: Supple, No Nodes Lungs: Diminished Cardiovascular: Regular rate, Regular Rhythm Abdomen: Bowel Sounds Present, Soft, Non Tender, Non-Distended Extremities: No edema Skin: No rashes IV Site: Peripheral, without redness Musculoskeletal: No Tenderness to Palpation of Joints or Extremities Neurological: Cranial nerves II-XII grossly intact - Assessment/Plan Antibiotics: [] Assessment/Plan: [] Active and Suspected Problems (Last Reviewed 10/07/17 @ 12:39 by Krissy Stratton) HCAP (healthcare-associated pneumonia) (Acute) Sepsis (Acute) Metabolic encephalopathy (Acute) CAP with single GAS in Bcx and urine (+) s. pneumo - much improved. Ok for d/c home on po omnicef q48 for 4 more doses. Thank you, will follow, d/w primary team. 11/19/17 1242 <Electronically signed by Rafa Zurita MD> Date Rafa Zurita MD Cosigner Signature (if applicable): Date CC: Leslie Kendall DO; Jimmy Gleason MD; Rafa Zurita MD Signed CONSULTATION Observed: 11/19/2017 Status: F Source: [place] 11:47 AM [facility] REPOSITORY [facility] Medical Records Department [address] [place] [address] Consultation 11/18/17 0904 MR#: [id number] Acct: [id number] Name: TANO MANTILLA Rep #: [id number] : 1965 52 From: Leslie Kendall DO PCP: Jimmy Gleason MD Status: ADM IN Y [facility] - Renal 11/18/17 PCP/ Referring MD: Requesting physician: Jimmy Engle Primary care physician: Jimmy Gleason Reason for Consultation:: ESRD dialysis mgmt TTS - History of Present Illness History of Present Illness: The patient is a 52 year old M with ESRD due to diabetes on hemodialysis Thursday, , Thursday last dialysis yesterday afternoon. Patient was brought to the hospital for fever and shaking chills following his dialysis yesterday. He had confusion and poor appetite following his dialysis yesterday. He was admitted for pneumonia possible sepsis. He denied any cough or shortness of breath. He had leukocytosis of WBC at 19,000 with fever with temperature of 101.8. Patient did receive vancomycin and Zosyn. Patient has no recollection of the events in regards to him getting to the hospital and the family has been concerned as he is never done anything like this before. He does not recall seeing me at the dialysis center yesterday. He is feeling better now however he is still disoriented to time. His son is at bedside states he is still confused. Blood culture showed gram-positive cocci on 1 set. Urine was positive for strep pneumonia. Chest x-ray revealed right lower lobe infiltrate. Stool for C. difficile was negative. - Allergies Allergies: Allergies No Known Allergies Allergy (Verified 11/18/17 02:12) - Current Medications Current Medications: Current Medications Acetaminophen (Tylenol) 650 mg PO Q6H PRN PRN PRN Reason: Mild Pain (1-3)/Temp > 100.7 F Albuterol Sulfate (Ventolin Aerosols) 2.5 mg INHALATION Q2H PRN PRN PRN Reason: SHORTNESS OF BREATH Albuterol/Ipratropium (Duoneb) 3 ml INHALATION Q4HWA.RT [facility] Last Admin: 11/18/17 06:51 Dose: 3 ml Calcium Acetate (Phoslo Gel Cap) 667 mg PO TID [facility] Last Admin: 11/18/17 06:14 Dose: 667 mg Doxazosin Mesylate (Cardura) 4 mg PO QHS [facility] Fluticasone Propionate (Flonase Nasal [place]) 1 spray NASAL DAILY PRN PRN PRN Reason: NASAL CONGESTION Guaifenesin (Mucinex) 1,200 mg PO BID [facility] Heparin Sodium (Porcine) (Heparin Na) 5,000 unit SC Q12 [facility] Sodium Chloride () 250 mls @ 15 mls/hr IV .[id number] PRN PRN Reason: SALINE FLUSH Azithromycin 250 mg/ Dextrose 252.5 mls @ 250 mls/hr IV Q24 [facility] Ceftriaxone Sodium (Rocephin) 1 gm in 50 mls @ 100 mls/hr IV Q24 [facility] Magnesium Hydroxide (Milk Of Magnesia) 30 ml PO DAILY PRN PRN Reason: Constipation Metoprolol Tartrate (Lopressor (Beta Alec)) 25 mg PO BID [facility] Ondansetron HCl (Zofran) 4 mg IV Q8H PRN PRN PRN Reason: NAUSEA Pancrelipase (Pancrelipase (5000-17,000-27,000)) 1 capsule PO TID [facility] Pravastatin Sodium (Pravachol) 40 mg PO QHS [facility] Sodium Chloride () 5 - 30 ml IV UD PRN PRN Reason: SALINE FLUSH - Past Medical History Past Medical History (Chronic Problems): Chronic Problems (Last Reviewed 10/07/17 @ 12:39 by Krissy Stratton) End stage renal disease (Chronic) DM2 (diabetes mellitus, type 2) (Chronic) HTN (hypertension) (Chronic) - Past Surgical History Surgical History: - - Left arm AV fistula - Social History Marital Status: Smoking Status: Former smoker Alcohol: None Drugs: None - Family History Paternal History Items: Diabetes Review of Systems Constitutional: Reports: Anorexia, Chills, Fever, Malaise, Weakness, Fatigue HEENT: Denies: Head Aches Cardiovascular: Denies: Chest Pain, Edema Respiratory: Denies: Cough, Shortness of Breath Gastrointestinal: Denies: Abdominal Pain, Constipation, Diarrhea, Nausea, Vomiting Genitourinary: Denies: Dysuria Musculoskeletal: Denies: Back Pain, Joint swelling Skin: Denies: Rash Neurological: Reports: Confusion, - - Shaking chills. Denies: Tremor Psychiatric: Denies: Anxiety, Depression Endocrine: Reports: - - Diabetic Hematologic/ Lymphatic: Reports: Anemia Patient Problems: Active and Suspected Problems (Last Reviewed 10/07/17 @ 12:39 by Krissy Stratton) HCAP (healthcare-associated pneumonia) (Acute) Sepsis (Acute) Metabolic encephalopathy (Acute) - Physical Exam General: Alert, Cooperative, No apparent distress, Well developed, Well nourished, Confused, Disoriented HEENT: PERRLA, EOMI Oral: Dry Mucosa Neck: Supple Lungs: Rales - Faint crackles at bases Cardiovascular: Regular rate, Murmur Abdomen: Bowel Sounds Present, Soft, Non Tender, Non-Distended Extremities: No edema, - - AV fistula with good thrill and bruit Musculoskeletal: Muscle Wasting Psych/Mental Status: Appropriate, - - Used Vital Signs Temp Pulse Resp BP Pulse Ox 98.6 F 71 16 112/58 L 92 11/18/17 06:19 11/18/17 07:06 11/18/17 06:51 11/18/17 06:19 11/18/17 06:51 Oxygen Flow Rate (L/min) 2 Oxygen Delivery Method Room Air Weight: 71.849 kg Body Mass Index (BMI) 24.8 Intake and Output for Last 24 Hours Intake Total 562 / 562 Balance 562 / 562 Microbiology Past 72 Hours 11/18/17 04:40 C. difficile DNA Amplification - Final Stool 11/18/17 00:25 Influenza Types A,B Direct FA (AMOL) - Final Mucosa - Nasopharyngeal Laboratory Tests Past 24 Hrs WBC 19.4 H RBC 3.74 L Hgb 10.8 L Hct 34.2 L MCV 91.4 POC Glucose POC Glucose 73 Assessment/Plan Active and Suspected Problems (Last Reviewed 10/07/17 @ 12:39 by Krissy Stratton) HCAP (healthcare-associated pneumonia) (Acute) Sepsis (Acute) Metabolic encephalopathy (Acute) 1. ESRD hemodialysis Thursday, , Thursday. Last dialysis yesterday. Next dialysis on . 2. Sepsis with fever and leukocytosis + strep pneumonia in urine, GPC in blood. Continue with IV antibiotic therapy. Check Vanco level prior to re-dosing 3. Confusion likely due to infectious process 4. DM type II primary management 5. Hypertension with stable blood pressure 6. Pancreatic insufficiency on on 7. Anemia hemoglobin stable BRITNEY therapy per chronic orders. 11/19/17 1147 <Electronically signed by Leslie Kendall DO> Date Leslie Kendall DO Cosigner Signature (if applicable): Date CC: Leslie Kendall DO; Jimmy Gleason MD; Rafa Zurita MD Signed DISCHARGE INSTRUCTION Observed: 11/19/2017 Status: F Source: [place] 11:22 AM [facility] REPOSITORY [facility] Medical Records Department [address] [place] [address] Instructions for Home/Discharge Instructions 11/19/17 1120 MR#: [id number] Acct: [id number] Name: TANO MANTILLA Rep #: [id number] : 1965 52 From: Porfirio Frausto DO PCP: Jimmy Gleason MD Status: ADM IN - Discharge Diagnoses Current Active Problems: Current Active and Chronic Problems (Last Reviewed 10/07/17 @ 12:39 by Krissy Stratton) End stage renal disease (Chronic) DM2 (diabetes mellitus, type 2) (Chronic) HTN (hypertension) (Chronic) HCAP (healthcare-associated pneumonia) (Acute) Sepsis (Acute) Metabolic encephalopathy (Acute) You will use the following diet at home:: Other - resume previous diet Your food should be the consistency of: Regular Your liquids should be the consistency of: Regular/Thin Discharge Activity: Return to Normal Activity Weight Bearing Status: Full weight bearing Allergies/Adverse Reactions: Allergies No Known Allergies Allergy (Verified 11/18/17 02:12) Medications to take at Discharge Doxazosin Mesylate [Cardura] 4 mg PO QHS 08/20/15 Lisinopril [Zestril] 40 mg PO QHS 08/20/15 Minoxidil [Loniten] 2.5 mg PO BID 08/20/15 Pravastatin [Pravachol] 40 mg PO QHS 08/20/15 Calcium Acetate [Phoslo Gel Cap] 667 mg PO TID 04/24/16 Dicyclomine HCl [Bentyl] 10 mg PO PRN PRN 04/24/16 Diphenoxylate HCl/Atropine [Lomotil 2.5-0.025 mg Tablet] 1 ea PO PRN PRN 04/24/16 Simethicone [Gas-X] 80 mg PO PRN PRN 04/24/16 Bacitracin 28.4 gm TP TID #1 oint...g. 08/12/17 fluticasone 50 mcg/actuation nasal spray,suspension 50 mcg INTRANASAL QDAY PRN 09/21/17 lfjhxo-ekmftxyq-zzidjoi 3,000-9,500-15,000 unit capsule,delayed releas 1 cap PO TID cap 09/21/17 metoprolol tartrate 50 mg tablet 25 mg PO BID tab 09/21/17 vitamin B complex and vitamin C no.20-folic acid 1 mg capsule 1 cap PO QDAY 09/21/17 Ergocalciferol [Vitamin D] 50,000 unit PO Q7D 11/18/17 Loperamide [Imodium] 2 mg PO Q8H PRN PRN 11/18/17 Cefdinir [Omnicef [equiv]] 300 mg PO QODAY #4 cap 11/19/17 The following prescriptions were given: Cefdinir [Omnicef [equiv]] 300 mg PO QODAY #4 cap Primary Care Physician: Jimmy Gleason MD [Primary Care Provider] - Please follow up with your Primary Care Physician in: next week-get another chest x-ray done next week 11/19/17 1122 <Electronically signed by Porfirio Frausto DO> Date Porfirio Frausto DO CC: Leslie Kendall DO; Jimmy Gleason MD; Rafa Zurita MD CBC-COMPLETE BLOOD CNT Collected: 11/19/2017 Status: F Source: [place] NO DIFF 6:05 AM [facility] REPOSITORY TYPE CODE TESTS RESULT OUT OF RANGE REFERENCE UNITS LAB L100.1000 4.4-11.0 K/mm3 High WBC 12.8 LAB L100.1200 4.6-6.2 M/mm3 Low RBC 3.58 LAB L100.1300 13.0-16.5 g/dl Low HGB 10.3 LAB L100.1400 40-54 % Low HCT 32.0 LAB L100.1500 80-94 fL Normal MCV 89.4 LAB L100.1600 27.0-32.0 pg Normal MCH 28.8 LAB L100.1700 32-36 g/gl Normal MCHC 32.2 LAB L100.1810 11.6-14.6 % High RDW CV 16.5 LAB L100.1820 35.1-43.9 fl High RDW SD 52.5 LAB L100.1900 150-450 K/mm3 Normal PLT 232 LAB L100.2000 6.2-12.0 fl Normal MPV 10.0 Performed By: #### L100.0500 #### [facility] [address] [place], [address] RENAL PROFILE Collected: 11/19/2017 Status: F Source: [place] 6:05 AM [facility] REPOSITORY TYPE CODE TESTS RESULT OUT OF RANGE REFERENCE UNITS LAB L501.0100 74-106 mg/dL Low GLU 67 Result Comment: Please note revised GLUCOSE reference range effective 2017. LAB L501.1000 7-18 mg/dL High BUN 56 LAB L501.1100 0.70-1.30 mg/dL High CREAT,SERUM 6.37 Result Comment: The validity of the calculated GFR AND GFRAA in patients over 70 years has not been determined. Clinical correlation is essential. LAB L501.1110 >60 mL/min Low EST GFR 10 Result Comment: Non- GFR Calc LAB L501.1115 >60 mL/min Low EST GFR - AA 12 Result Comment: GFR Calc LAB L501.1255 ml/min Normal Estimated CRCL 11.96 LAB L501.1300 10-20 RATIO Low BUN/CRE 8.8 LAB L501.1800 3.2-5. g/dL Low 0 ALB 2.6 LAB L501.2200 8.5-10 mg/dL Low .1 CA 8.0 LAB L501.2300 2.5-4. mg/dL Normal 9 PHOS 4.8 LAB L501.5300 136-14 mmol/L Normal 5 NA 136 LAB L501.5600 3.5-5. mmol/L Normal 1 K 4.5 LAB L501.5900 98-107 mmol/L Low CL 95 LAB L501.6100 21.0-3 mmol/L Normal 2.0 CO2 29.0 Performed By: #### L500.3600 #### [facility] [address] [facility] [place], [place], [address] VANCOMYCIN, RANDOM Collected: 11/19/2017 Status: F Source: [place] LEVEL 6:05 AM [facility] REPOSITORY TYPE CODE TESTS RESULT OUT OF RANGE REFERENCE UNITS LAB L501.8850 0.0-15.0 ug/mL Normal VANCO, RANDOM 14.1 Result Comment: VANCOMYCIN STANDARD DRUG THERAPY: CRITICAL VALUE IS > 15.0 mg/L VANCOMYCIN HIGH INTENSITY THERAPY: CRITICAL VALUE IS > 20.0 mg/L PLEASE CONTACT PHARMACY SERVICES (#[id number]) FOR INTERPRETATION OF RESULTS. THIS RESULT DOES NOT REPRESENT A PEAK OR TROUGH LEVEL FOR THIS DRUG. Performed By: #### L501.8850 #### [facility] [address] [facility] [place], [place], [address] CHEST PA AND LATERAL Observed: 11/19/2017 Status: F Source: [place] 12:01 AM [facility] REPOSITORY [facility] Imaging Services [address] [place] [address] Chest PA and Lateral MR#: [id number] Acct: [id number] Name: TANO MANTILLA Rep #: [id number] : 1965 M 52 From: Vu Espinoza MD PCP: Jimmy Gleason MD Status: ADM IN Study: Chest PA and Lateral Date of Exam: 11/19/17 Exam# [id number] Ordering Dr: Porfirio Frausto DO STUDY: X-RAY CHEST REASON FOR EXAM: Male, 52 years old. Cough. Shortness of breath. TECHNIQUE: PA and lateral views of the chest. COMPARISON: Comparison is made with prior examination dated November 17, 2017. FINDINGS: EKG electrodes are seen. Stable elevation of the right hemidiaphragm. Persistent right lower lobe infiltrate. Increased markings in the left lung base suggestive of atelectasis and/or infiltrate. Further follow-up is recommended. There is no demonstrated pleural abnormality. There is mild cardiac enlargement. Normal mediastinum and marie. Normal visualized pulmonary arteries. There is atherosclerotic calcification of the aortic arch with tortuosity. Normal visualized thoracic spine. Normal visualized ribs, clavicles, and shoulders. There is no demonstrated abnormality of the visualized soft tissue structures of the upper abdomen. RAD/Chest PA and Lateral IMPRESSION: Persistent right lower lobe atelectasis and/or infiltrate with increased markings at the left lung base. Electronically Signed: Vu Espinoza MD at 9:28 EDT Tel [phone], Service support , CC: Jimmy Gleason MD; Porfirio Frausto DO Career Agent: Signed BASIC METABOLIC Collected: 11/18/2017 Status: F Source: [place] PROFILE (BMP) 5:20 AM [facility] REPOSITORY TYPE CODE TESTS RESULT OUT OF RANGE REFERENCE UNITS LAB L501.0100 74-106 mg/dL High GLU 142 Result Comment: Fasting Glucose result greater than or equal to 126 mg/dL suggests DIABETES MELLITUS per A.D.A. criteria. Please note revised GLUCOSE reference range effective 2017. LAB L501.1000 7-18 mg/dL High BUN 38 LAB L501.1100 0.70-1.30 mg/dL High CREAT,SERUM 5.12 Result Comment: The validity of the calculated GFR AND GFRAA in patients over 70 years has not been determined. Clinical correlation is essential. LAB L501.1110 >60 mL/min Low EST GFR 13 Result Comment: Non- GFR Calc LAB L501.1115 >60 mL/min Low EST GFR - AA 15 Result Comment: GFR Calc LAB L501.1255 ml/min Normal Estimated CRCL 14.88 LAB L501.1300 10-20 RATIO Low BUN/CRE 7.4 LAB L501.2200 8.5-10 mg/dL Low .1 CA 7.9 LAB L501.5300 136-14 mmol/L Normal 5 NA 136 LAB L501.5600 3.5-5. mmol/L Normal 1 K 4.6 LAB L501.5900 98-107 mmol/L Low CL 96 LAB L501.6100 21.0-3 mmol/L Normal 2.0 CO2 30.0 LAB L501.6200 5-15 Normal GAP 10 Performed By: #### L500.2500 #### [facility] [address] [place], [address] CBC-COMPLETE BLOOD CNT Collected: 11/18/2017 Status: F Source: [place] NO DIFF 5:20 AM [facility] REPOSITORY TYPE CODE TESTS RESULT OUT OF RANGE REFERENCE UNITS LAB L100.1000 4.4-11.0 K/mm3 High WBC 19.4 LAB L100.1200 4.6-6.2 M/mm3 Low RBC 3.74 LAB L100.1300 13.0-16.5 g/dl Low HGB 10.8 LAB L100.1400 40-54 % Low HCT 34.2 LAB L100.1500 80-94 fL Normal MCV 91.4 LAB L100.1600 27.0-32.0 pg Normal MCH 28.9 LAB L100.1700 32-36 g/gl Low MCHC 31.6 LAB L100.1810 11.6-14.6 % High RDW CV 16.2 LAB L100.1820 35.1-43.9 fl High RDW SD 52.0 LAB L100.1900 150-450 K/mm3 Normal PLT 238 LAB L100.2000 6.2-12.0 fl Normal MPV 10.0 Performed By: #### L100.0500 #### [facility] [address] [facility] [place], [address] Observed: 11/18/2017 Status: F Source: [place] CDIFF (MOLECULAR) 4:40 AM [facility] REPOSITORY Order Date: 11/18/17 Cdiff-Molecular C. Diff DNA Negative- No toxigenic C. Diff DNA Detected NAAT METHOD Testing was performed using nucleic acid amplification Performed By: #### M100.6796 #### [facility] [address] [place], [address] BEDSIDE GLUCOSE Collected: 11/18/2017 Status: F Source: [place] 1:18 AM [facility] REPOSITORY TYPE CODE TESTS RESULT OUT OF RANGE REFERENCE UNITS LAB L501.080 70-110 mg/dL Normal BEDSIDE GLU 73 Result Comment: MANAGEMENT OF PATIENT CARE PER NURSING PROTOCOL Performed By: #### L501.080 #### [facility] Point of Care [address] [place] [address] ABDOMEN LIMITED Observed: 11/18/2017 Status: F Source: [place] 1:06 AM [facility] REPOSITORY [facility] Imaging Services [address] [place] [address] Abdomen Limited MR#: [id number] Acct: [id number] Name: TANO MANTILLA Rep #: [id number] : 1965 M 52 From: Vu Espinoza MD PCP: Jimmy Gleason MD Status: ADM IN Study: Abdomen Limited Date of Exam: 11/18/17 Exam# [id number] Ordering Dr: Jimmy Engle DO STUDY: ABDOMINAL ULTRASOUND - RIGHT UPPER QUADRANT REASON FOR VISIT: Male, 52 years old. Cirrhosis. Gallstones. Ascites. TECHNIQUE: Ultrasound evaluation of the right upper quadrant was performed with real-time and static sanchez-scale imaging. TECHNICAL QUALITY: Adequate. COMPARISON: Comparison is made with prior CT scan the abdomen dated November 17, 2017. FINDINGS: Ascites. Liver: The liver is enlarged and measures 19.4 cm. Nodular hepatic contour. There is a heterogeneous echogenicity of the liver. The bile ducts are within normal limits. There is hepatic color flow. The direction of portal flow is hepatopetal. There is no demonstrated mass lesion. Gallbladder: Normal distended gallbladder. The gallbladder wall is thickened and measures 6.0 mm. There is a negative sonographic Reed's sign. There is pericholecystic fluid. There are multiple echogenic structures within the gallbladder, consistent with multiple gallstones. Is also evidence of gallbladder polyps. Common Bile Duct (C.B.D.): The common bile duct measures 5.0 mm. Pancreas: Normal size of the head, body and tail of the pancreas. There is normal echogenicity of the pancreas. There is no demonstrated pancreatic mass or cyst. Right Kidney: Normal size of the right kidney. The right kidney measures 9.6 cm x 5.7 cm x 4.0 cm. There is thinning of the renal cortex. The right cortex measures 0.8 cm. There is no demonstrated renal mass or cyst. There is no right hydronephrosis. US/Abdomen Limited IMPRESSION: Hepatomegaly. Multiple gallstones with sludge and gallbladder polyps. Ascites. Electronically Signed: Vu Espinoza MD at 12:49 EDT Tel [phone], Service support , CC: Jimmy Engle DO; Jimmy Gleason MD Career Agent: Signed HISTORY AND PHYSICAL Observed: 11/18/2017 Status: F Source: [place] EXAM 12:25 AM [facility] REPOSITORY [facility] Medical Records Department [address] [place] [address] History and Physical 11/18/17 0016 MR#: [id number] Acct: [id number] Name: TANO MANTILLA Rep #: [id number] : 1965 52 From: Jimmy Engle DO PCP: Jimmy Gleason MD Status: ADM IN Y Location: [place] [address] Problem List (1) End stage renal disease Status: Chronic (2) DM2 (diabetes mellitus, type 2) Status: Chronic (3) HTN (hypertension) Status: Chronic (4) HCAP (healthcare-associated pneumonia) Status: Acute (5) Sepsis Status: Acute (6) Metabolic encephalopathy Status: Acute History of Present Illness Date of Admission: 11/17/17 Chief Complaint: confusion The patient is a 52 year old M who was at dialysis on the and started having fever. Afterwards, patient was confused and did not remember much in way of events. Family was concerned because the patient did not recognize his . Patient was brought to the hospital and was noted to have a fever And was septic. Patient did receive a small bolus of IV fluids. Patient did receive vancomycin and Zosyn. Patient has no recollection of the events in regards to him getting to the hospital and the family has been concerned as he is never done anything like this before. Patient has otherwise been feeling well. [] Past Medical History Past Medical History (Chronic Problems): Chronic Problems (Last Reviewed 10/07/17 @ 12:39 by Krissy Stratton) End stage renal disease (Chronic) DM2 (diabetes mellitus, type 2) (Chronic) HTN (hypertension) (Chronic) Allergies No Known Allergies Allergy (Verified 10/07/17 12:39) Home Medications: Ambulatory Orders Medication Instructions Recorded Amlodipine Besylate [Amlodipine 5 mg PO DAILY 10/19/14 Besylate] Doxazosin Mesylate [Cardura] 4 mg PO QHS 08/20/15 Surgical History: - - Left arm AV fistula Psychiatric History: No pertinent psych hx Lives: Spouse/ Significant Other Smoking Status: Former smoker Tobacco Use: Chew Alcohol: None Drugs: None - *Family History Paternal History Items: Diabetes Review of Systems Constitutional: Reports: Chills, Fever. Denies: Anorexia Eyes: Denies: Blurred vision, Double vision HEENT: Denies: Head Aches, Sinus Congestion, Sinus Drainage Cardiovascular: Denies: Chest Pain, Palpitations Respiratory: Denies: Cough, Shortness of breath at rest, Sputum production Gastrointestinal: Reports: - - Chronic abdominal distention. Denies: Abdominal Pain Genitourinary: Denies: Dysuria, Hematuria Musculoskeletal: Denies: Joint Pain, Joint Tenderness Skin: Denies: Rash, Wounds Neurological: Reports: Confusion. Denies: Focal weakness, Numbness, Tingling Psychiatric: Denies: Anxiety, Depression Endocrine: Denies: Change in Body Habitus, Heat/ Cold Intolerance Hematologic/ Lymphatic: Denies: Easy Bruising, Easy Bleeding, Hx of blood clot VTE Information - Inpt Only VTE Present on Admission: No VTE Pharm Prophylaxis ordered?: Yes Patient Problems: Active and Suspected Problems (Last Reviewed 10/07/17 @ 12:39 by Krissy Stratton) HCAP (healthcare-associated pneumonia) (Acute) Sepsis (Acute) Metabolic encephalopathy (Acute) - Physical Exam General: Alert, - - Oriented to self and place. The date is December 1899-something HEENT: Atraumatic, Normocephalic Oral: Moist Mucosa, No Gingival or Mucosal Lesions/ Ulcerations Neck: No Nodes, Thyroid Normal Size and Texture Lungs: Clear to auscultation, Normal air movement, No rhonchi, No wheeze Cardiovascular: Regular rate, Regular Rhythm, Normal S1, Normal S2, No murmurs Abdomen: Bowel Sounds Present, Soft, Non Tender, Distended Extremities: No edema, No Calf Tenderness Skin: No rashes, No breakdown Musculoskeletal: Cachexia, Muscle Wasting Neurological: Neuro grossly intact, Muscle tone normal Psych/Mental Status: Normal Affect, Appropriate Vital Signs Temp Pulse Resp BP Pulse Ox 36.9 C 71 16 92/50 L 94 11/17/17 23:53 11/18/17 00:00 11/18/17 00:00 11/18/17 00:00 11/18/17 00:00 Oxygen Flow Rate (L/min) 4 Oxygen Delivery Method Nasal Cannula Weight: 73.5 kg Body Mass Index (BMI) 25.3 Finger Stick Blood Glucose 175 Laboratory Tests Past 24 Hrs WBC 11.4 H RBC 3.79 L WBC RBC Hgb Hct MCV MCH MCHC RDW RDW Differential Plt Count MPV Clinical Impression(s) from Imaging Studies Abdomen/Pelvis CT 11/17/17 21:17 IMPRESSION: Large amount of ascites throughout the abdomen and pelvis. No bowel obstruction or inflammation. Nodular liver, consistent with cirrhosis. Gallstones. Congestive changes at the lung bases. Atherosclerosis and coronary artery disease. Electronically Signed: Mac Oliveros, at 22:23 EDT Tel , Service support , Brain CT 11/17/17 21:17 IMPRESSION: No acute intracranial abnormality. Right maxillary sinusitis. Electronically Signed: Mac Oliveros, at 22:17 EDT Tel , Service support , Chest X-Ray 11/17/17 21:17 IMPRESSION: Right lower lobe opacity which is likely infectious in etiology. Electronically Signed: Mac Oliveros, at 21:50 EDT Tel , Service support , Assessment/Plan Active and Suspected Problems (Last Reviewed 10/07/17 @ 12:39 by Krissy Stratton) HCAP (healthcare-associated pneumonia) (Acute) Sepsis (Acute) Metabolic encephalopathy (Acute) 1. Sepsis * Patient meets 2 out of 4 Sirs criteria * Suspect related with pneumonia but influenza swab currently pending 2. Suspected gram-negative pneumonia/healthcare acquired pneumonia * Patient is a patchy infiltrates on his chest x-ray * Given that he is a dialysis patient will treat him empirically for healthcare acquired pneumonia with vancomycin and Zosyn * Check urine antigens for Streptococcus and Legionella * Check sputum culture * Pulmonary toilet 3. Metabolic encephalopathy * Patient with confusion that still persists but better * This coincided with his going febrile * I suspect it is related with the underlying infection with pneumonia or influenza. 4. End-stage renal disease * On hemodialysis every Thursday * Patient completed his dialysis on the * Dr. Kendall will be on consultation 5. Ascites * Sounds as though this may be chronic * Patient equates is being related with his dialysis, but feel that is related with his being end-stage renal disease as he really has no edema elsewhere. * I feel would be appropriate to at least get an ultrasound of his abdomen to see if he has an underlying cirrhosis. * Of note, patient had a paracentesis ordered on April 2016 but it was canceled. Unclear if that was in air or if it was actually scheduled for this and just canceled * Patient and family are really unaware of other possibilities for his ascites. 6. DVT prophylaxis with heparin Patient was seen and examined and history and physical was performed on November 17. Code Visit Inpatient E AND M: [id number] Init Hosp L3 11/18/17 0025 <Electronically signed by Jimmy Engle DO> Date Jimmy Engle DO Cosigner Signature: Date (if applicable) CC: Jimmy Engle DO; Jimmy Gleason MD Signed Observed: 11/18/2017 Status: F Source: [place] INFLUENZA A+B (RAPID 12:25 AM [facility]) REPOSITORY Order Date: 11/17/17 Has pt arrived? Y FLU A/B Rapid Negative test results should be confirmed by culture. Order Rapid Viral Culture for Influenzae A+B ([id number]) if clinically indicated. Influenza Ag, Direct Presumptive NEGATIVE for Influenza A/B Antigen (See Note) Performed By: #### M101.0101 #### [facility] [address] [place], [address] EMERGENCY DEPARTMENT Observed: 11/18/2017 Status: F Source: [place] SUMMARY 12:04 AM [facility] REPOSITORY [facility] Medical Records Department [address] [facility] [place] [address] Emergency Department Summary 11/17/17 2157 MR#: [id number] Acct: [id number] Name: TANO MANTILLA Rep #: [id number] : 1965 52 From: Pritesh Mendez MD PCP: Jimmy Gleason MD Status: REG ER - ER Visit Summary Date of Service: 11/17/17 Chief Complaint: Confusion History of Present Illness: The patient is a 52 M who has end-stage renal disease and is on hemodialysis. He had dialysis today and when he went home his family states that he had trouble with short-term memory. He did not know the name of one of his family members. They also reported he is having fevers and not acting right. They said his abdomen looked red and distended and felt warm. For me, the patient has no complaints. He does remember going to dialysis but does not remember much after that. He denies any pain, nausea, vomiting, or any other symptoms. Physical Examination: Temperature 101.8. Otherwise vitals unremarkable. Alert and oriented. No acute distress. Heart regular. Lungs clear. Abdomen soft and nontender. Left upper extremity fistula noted. Skin appears normal in color. No focal or lateralizing neurologic abnormalities. No meningeal signs. Test Results: EKG showed sinus rhythm at a rate of 85. No sign of acute ischemia or infarction pattern. White count 11.4 and hemoglobin 11. Cr 4.69. Total bilirubin 1.4 and alk phos 373. Coags unremarkable. Troponin and lactate normal. Chest x- ray shows a right lower lobe opacity concerning for pneumonia. CT abdomen and head are pending. Emergency Department Course and Treatment: Placed on a monitor and treated with Tylenol while awaiting results. Patient continued to have issues with short-term memory. He could not remember why he was in the emergency department. He did remember dialysis today and he does seem to have longer memories intact. He had no other neurologic complaints. No headache or neck pain. No meningeal signs. His pressures did drop to 99/52. A fluid bolus of [address] abdomen showed ascites, cirrhosis, gallstones, and coronary disease among other incidental findings. I checked an ammonia level and it was 24. CT head showed no acute abnormalities. Urinalysis is pending. Influenza test pending. Cultures pending. Patient was covered with Zosyn and vancomycin. I spoke with Dr. Engle, who will admit the patient to PCU. Treatment Plan: As above Disposition: Admission Impression: 1. Delirium 2. Healthcare associated pneumonia 3. Sepsis 4. End-stage renal disease This note was generated with [employer] software. It may contain incorrect words, spelling, and punctuation that were not noted in review of the chart prior to signing ED Disposition - Plan for ED Patient: Chief Complaint: Alt LOC Referrals: Jimmy Gleason MD [Primary Care Provider] - What to do if you have Problems For any increased pain, shortness of breath, bleeding, nausea or vomiting, chest pain, or any unexpected problems, contact your Primary Care Provider. Call [facility] ([phone]) or report to the closest Emergency Room. Call 911 if necessary. 11/18/17 0004 <Electronically signed by Pritesh Mendez MD> Date Pritesh Mendez MD Cosigner Signature (If Indicated): Date CC: Jimmy Gleason MD URINALYSIS, COMPLETE Collected: 11/17/2017 Status: F Source: [place] 11:25 PM [facility] REPOSITORY Order Comment: Order Date: 11/17/17 Has pt arrived? Y How was Urine Obtained? CAR SHAGGER TO SPECIFY TYPE CODE TESTS RESULT OUT OF REFERENCE UNITS RANGE LAB L400.3000 Yellow COLOR Normal Yellow LAB L400.3050 Clear CLARITY Normal Sl. Cloudy LAB L400.3200 Normal mg/dl GLUCOSE, UR Normal Normal LAB L400.3300 Negative mg/dL BILIRUBIN Normal URINE Negative LAB L400.3400 Negative mg/dl KETONE UR Normal Negative LAB L400.3465 1.002-1.030 SP.GR. Normal DIPSTX 1.010 LAB L400.3550 5.0 - 8.0 pH UR Normal 8.0 LAB L400.3600 Negative mg/dl PROT DIPSTX High 500 LAB L400.3700 Normal mg/dl UROBILI Normal Normal LAB L400.3750 Negative NITRITE UR Normal Negative LAB L400.3780 Negative /ul OCCULT High BLOOD-UR 250 LAB L400.3800 Negative /ul LEUK High ESTERASE 25 LAB L400.4050 0-5 /hpf WBC Normal 0-5 SEEN LAB L400.4100 0-5 /hpf RBC-UA Normal 5-10 SEEN LAB L400.4150 0-5 /hpf SQUAM EPI Normal 0-5 SEEN LAB L400.4300 None Seen /hpf BACTERIA Normal RARE LAB L400.4350 <or=2+ /hpf MUCUS, Normal URINE 0 SEEN LAB L400.4200 0-5 /hpf Normal TRANSITIONAL EP 0-5 SEEN Performed By: #### L400.0001 #### [facility] [address] [place], [address] Observed: 11/17/2017 Status: F Source: [place] LEGIONELLA ANTIGEN 11:25 PM [facility] URINE REPOSITORY Order Date: 11/18/17 Specimen Source: URINE, CATHETER Legionella, UR Legionella Antigen result interpretation: Negative Presumptive negative for Legionella pneumophila serogroup 1 antigen in urine, suggesting no recent or current infection. Legionella Ag, Urine Negative (See interpretation below) Performed By: #### M300.4500 #### [place] [facility] [address] [place], [address] STREP Observed: 11/17/2017 Status: C Source: [place] PNEUMONIAE ANTIG(UR,CSF) 11:25 PM [facility] REPOSITORY Order Date: 11/18/17 CRITICAL VALUE VERIFIED. CALLED TO SALVADOR JUAREZ 11/18/17 0148 Tammy Fernandez. RESULTS READ BACK BY SAME . Radha pneumo Ag * This is an amended result. * A prior result that was reported as final has been changed. 11/18/17 1336 by ANIBAL Previously reported as: FINAL URINE INTERPRETATION Positive Urine Positive for pneumococcal pneumonia. Strep pneumo Test Urine POSITIVE for pneumococcal pneumonia. ORGANISM 1: Streptococcus pneumonia Ag Performed By: #### M300.4600 #### [facility] [address] [place], [address] Observed: 11/17/2017 Status: F Source: [place] CULTURE, URINE 11:25 PM [facility] REPOSITORY Order Date: 11/17/17 Has pt arrived? Y Urine Culture Culture exhibits no growth. Performed By: #### M100.0650 #### [facility] [address] [place], [address] AMMONIA Collected: 11/17/2017 Status: F Source: [place] 10:46 PM [facility] REPOSITORY TYPE CODE TESTS RESULT OUT OF RANGE REFERENCE UNITS LAB L503.5510 11-32 umol/L Normal AMMONIA 24.0 Performed By: #### L503.5510 #### [facility] [address] [place], [address] CHEST 1 VIEW Observed: 11/17/2017 Status: F Source: [place] (PORTABLE) 9:19 PM [facility] REPOSITORY [facility] Imaging Services [address] [place] [address] Chest 1 View (Portable) MR#: [id number] Acct: [id number] Name: TANO MANTILLA Rep #: [id number] : 1965 M 52 From: Mac Oliveros MD PCP: Victorino MIMS,Jimmy Status: PRE ER Study: Chest 1 View (Portable) Date of Exam: 11/17/17 Exam# [id number] Ordering Dr: Pritesh Mendez MD STUDY: X-RAY CHEST REASON FOR EXAM: Male, 52 years old. Altered mental status TECHNIQUE: Frontal view of the chest COMPARISON: 07/12/2014 FINDINGS: There is airspace opacity in the right lower lobe which is likely infectious in etiology. The lungs are otherwise clear. There are no pleural effusions. There is no pneumothorax. The heart is normal in size. The visualized osseous structures are within normal limits. RAD/Chest 1 View (Portable) IMPRESSION: Right lower lobe opacity which is likely infectious in etiology. Electronically Signed: Mac Oliveros, at 21:50 EDT Tel , Service support , CC: Pritesh Mendez MD; Jimmy Gleason MD Career Agent: Signed BRAIN/HEAD WITHOUT Observed: 11/17/2017 Status: F Source: [place] CONTRAST 9:19 PM [facility] REPOSITORY [facility] Imaging Services [address] [place] [address] Brain/Head without Contrast MR#: [id number] Acct: [id number] Name: TANO MANTILLA Rep #: [id number] : 1965 M 52 From: Mac Oliveros MD PCP: Jimmy Gleason MD Status: PRE ER Study: Brain/Head without Contrast Date of Exam: 11/17/17 Exam# [id number] Ordering Dr: Pritesh Mendez MD STUDY: CT BRAIN WITHOUT CONTRAST REASON FOR EXAM: Male, 52 years old. Altered mental status RADIATION DOSAGE (If Supplied By Facility): CTDIvol = ( 44.99 ) mGy, DLP = ( 745.49 ) mGycm TECHNIQUE: Transaxial CT imaging of the brain was performed without administration of intravenous contrast material. Individualized dose optimization techniques were used for this CT. COMPARISON: None. FINDINGS: There is no acute bleed or infarct. There are normal white matter tracts. The ventricles are normal in configuration. There is no hydrocephalus. There is mucosal hypertrophy in the right maxillary sinus. The visualized paranasal sinuses are otherwise clear. The mastoid air cells are well aerated. There is no skull fracture. CT/Brain/Head without Contrast IMPRESSION: No acute intracranial abnormality. Right maxillary sinusitis. Electronically Signed: Mac Oliveros, at 22:17 EDT Tel , Service support , CC: Pritesh Mendez MD; Jimmy Gleason MD Career Agent: Signed ABDOMEN/PELVIS WITHOUT Observed: 11/17/2017 Status: F Source: [place] CONT 9:19 PM [facility] Imaging Services [address] [place] [address] Abdomen/Pelvis without Cont MR#: [id number] Acct: [id number] Name: TANO MANTILLA Rep #: [id number] : 1965 M 52 From: Mac lOiveros MD PCP: Victorino MIMS,Jimmy Status: PRE ER Study: Abdomen/Pelvis without Cont Date of Exam: 11/17/17 Exam# [id number] Ordering Dr: Pritesh Mendez MD STUDY: CT ABDOMEN AND PELVIS WITHOUT CONTRAST REASON FOR EXAM: Male, 52 years old. Altered mental status. RADIATION DOSAGE (If Supplied By Facility): CTDIvol = ( 9.47 ) mGy, DLP = ( 537.08 ) mGycm TECHNIQUE: Transaxial images were obtained from the dome of the diaphragm to the symphysis pubis without oral contrast, and without intravenous contrast. Sagittal and coronal images were reconstructed. Individualized dose optimization techniques were used for this CT. COMPARISON: 10/19/2014 FINDINGS: Evaluation of the abdominal viscera is limited in the absence of intravenous contrast. There are mild congestive changes noted at the lung bases. The visualized portions of the heart and pericardium are within normal limits. There are coronary artery calcifications noted. There are multiple small calcified gallstones present. The liver is nodular in contour, consistent with cirrhosis. The spleen is normal in size. The pancreas demonstrates an unremarkable unenhanced appearance. The adrenal glands are within normal limits. There are no obstructing renal stones. There is no hydronephrosis. Normal visualized stomach. There is no bowel obstruction or inflammation. The appendix is not visualized, but there are no findings to suggest acute appendicitis. The aorta is normal in caliber. There are atherosclerotic calcifications noted in the aorta and its branches. There is a large amount of free fluid. There is no free air, fluid collection or lymphadenopathy. There are no destructive osseous lesions. CT/Abdomen/Pelvis without Cont IMPRESSION: Large amount of ascites throughout the abdomen and pelvis. No bowel obstruction or inflammation. Nodular liver, consistent with cirrhosis. Gallstones. Congestive changes at the lung bases. Atherosclerosis and coronary artery disease. Electronically Signed: Mac Oliveros, at 22:23 EDT Tel , Service support , CC: Pritesh Mendez MD; Jimmy Gleason MD Career Agent: Signed CBC W/DIFF, AUTOMATED Collected: 11/17/2017 Status: F Source: [place] 8:48 PM [facility] REPOSITORY TYPE CODE TESTS RESULT OUT OF RANGE REFERENCE UNITS LAB L100.1000 4.4-11.0 K/mm3 High WBC 11.4 LAB L100.1200 4.6-6.2 M/mm3 Low RBC 3.79 LAB L100.1300 13.0-16.5 g/dl Low HGB 11.0 LAB L100.1400 40-54 % Low HCT 34.5 LAB L100.1500 80-94 fL Normal MCV 91.0 LAB L100.1600 27.0-32.0 pg Normal MCH 29.0 LAB L100.1700 32-36 g/gl Low MCHC 31.9 LAB L100.1810 11.6-14.6 % High RDW CV 15.8 LAB L100.1820 35.1-43.9 fl High RDW SD 50.7 LAB L100.1900 150-450 K/mm3 Normal PLT 240 LAB L100.2000 6.2-12.0 fl Normal MPV 9.9 LAB L100.2100 47-70 % High NEUT% 92.3 LAB L100.2200 19-41 % Low LY% 2.6 LAB L100.2300 0-10 % Normal MONO% 4.1 LAB L100.2400 0-5 % Normal EO% 0.5 LAB L100.2500 0-1 % Normal BASO% 0.2 LAB L100.2550 0.0-0.9 % Normal IM GRAN % 0.300 Result Comment: IG% - Immature Granulocytes (promyelocytes, myelocytes and metamyelocytes) > 1% indicates that a LEFT SHIFT is Present. LAB L100.2620 2.0-7.7 X10 3/uL High Absolute Neut 10.6 LAB L100.2720 0.83-4.51 X10 3/ul Low Absolute Lymph 0.30 LAB L100.4500 Normal SMEAR COMMENT SCANNED Result Comment: LYMPHOPENIA NOTED Performed By: #### L100.0100 #### [facility] [address] [place], [address] PROTHROMBIN TIME W/INR Collected: 11/17/2017 Status: F Source: [place] 8:48 PM [facility] REPOSITORY TYPE CODE TESTS RESULT OUT OF RANGE REFERENCE UNITS LAB L300.4150 11.7-14.9 SECONDS High PROTIME 15.1 LAB L300.4200 Normal INR 1.2 Performed By: #### L300.3900, L300.4310 #### [facility] [address], [address] PARTIAL THROMBOPLAST Collected: 11/17/2017 Status: F Source: [facility] 8:48 PM [facility] REPOSITORY TYPE CODE TESTS RESULT OUT OF RANGE REFERENCE UNITS LAB L300.4310 24.1-36.2 Seconds Normal PTT 32.5 Performed By: #### L300.3900, L300.4310 #### [facility] [address] [place], [address] LACTIC ACID Collected: 11/17/2017 Status: F Source: [place] 8:48 PM [facility] REPOSITORY Order Comment: Yes/No query for Sepsis Lactate Rule Y TYPE CODE TESTS RESULT OUT OF RANGE REFERENCE UNITS LAB L503.6005 0.4-2.0 mmol/L Normal LACTIC ACID 1.2 Performed By: #### L503.6005 #### [facility] [address] [place], [address] COMPREHENSIVE METABOLIC Collected: 11/17/2017 Status: F Source: [place] PROFIL 8:48 PM [facility] REPOSITORY TYPE CODE TESTS RESULT OUT OF RANGE REFERENCE UNITS LAB L501.0100 74-106 mg/dL Normal GLU 96 Result Comment: Please note revised GLUCOSE reference range effective 2017. LAB L501.1000 7-18 mg/dL High BUN 31 LAB L501.1100 0.70-1.30 mg/dL High CREAT,SERUM 4.69 Result Comment: The validity of the calculated GFR AND GFRAA in patients over 70 years has not been determined. Clinical correlation is essential. LAB L501.1110 >60 mL/min Low EST GFR 14 Result Comment: Non- GFR Calc LAB L501.1115 >60 mL/min Low EST GFR - AA 17 Result Comment: GFR Calc LAB L501.1255 ml/min Normal Estimated CRCL 16.83 LAB L501.1300 10-20 RATIO Low BUN/CRE 6.6 LAB L501.1500 6.4-8. g/dL High 2 T PROT 8.3 LAB L501.1800 3.2-5. g/dL Low 0 ALB 3.1 LAB L501.1950 2.2-4. g/dL High 2 GLOB 5.2 LAB L501.2000 0.9-2. RATIO Low 4 A/G 0.6 LAB L501.2200 8.5-10 mg/dL Low .1 CA 7.8 LAB L501.4100 15-37 U/L Normal AST 27 LAB L501.4305 45-117 U/L High ALK P 373 LAB L501.4405 16-61 U/L Normal ALT 30 LAB L501.4600 0.20-1 mg/dL High .00 T BILI 1.40 LAB L501.5300 136-14 mmol/L Normal 5 NA 137 LAB L501.5600 3.5-5. mmol/L Normal 1 K 4.2 LAB L501.5900 98-107 mmol/L Low CL 94 LAB L501.6100 21.0-3 mmol/L Normal 2.0 CO2 30.0 LAB L501.6200 5-15 Normal GAP 13 Performed By: #### L500.4050, L501.4010 #### [facility] [address] [place], [place], [address] TROPONIN-I Collected: 11/17/2017 Status: F Source: [place] 8:48 PM [facility] REPOSITORY TYPE CODE TESTS RESULT OUT OF RANGE REFERENCE UNITS LAB L501.4010 <0.045 ng/mL Normal 0.034 TROPONIN-I Result Comment: TROPONIN-I EXPECTED VALUES <0.045 Negative 0.045 - 0.590 Consistent with Cardiac Damage > OR = 0.600 Critical Value Not every elevated troponin is indicative of ME. These values should be used with clinical judgement in examining the patient's clinical picture for diagnosis. To establish a diagnosis of ME versus myocardial injury, there must be a demonstrated rise and/or fall in the troponin values, in addition to ischemic symptoms, EKG changes, new regional wall motion abnormality, and/or angiographical evidence. PLEASE NOTE: REFERENCE RANGES EDITED 17 Performed By: #### L500.4050, L501.4010 #### [facility] [address] [place], [address] Observed: 11/17/2017 Status: F Source: [place] CULTURE, BLOOD (WB) 8:48 PM [facility] REPOSITORY Copy of report sent to Infection Control Printer [id number] 11/18/17 1208 JOHN. AEROBIC AND ANAEROBIC BOTTLE GRAM STAIN = GRAM POSITIVE COCCI CHAINS RESULTS CALLED TO Emmett BRYANT 11/18/17 0904 Maryjane Palma. REPORT READ BACK BY JAKY. Copy of report sent to Infection Control Printer [id number] 11/19/17 0825 DCANNON. ORGANISM 1: Streptococcus pyogenes Amount Growth Growth Streptococcus pyogenes: REACTION Ampicillin $ <=0.25 S Benzylpenicillin NF <=0.06 S Cefotaxime $ <=0.12 S Ceftriaxone $ <=0.12 S Clindamycin $$ <=0.25 S Inducable Clindamycin Resistan - Erythromycin $ <=0.12 S Vancomycin $ 0.25 S (NF) indicates non-formulary drug at [facility]. Approval by Infectious Disease Specialist required before non-formulary drugs may be ordered and/or dispensed. * CLSI guidelines does not recommend testing of cephalosporins. This interpretation is deduced from Beta-lactam/penicillin results. Performed By: #### M200.1000, M100.636 #### [facility] [address] [place], [place], [address] Observed: 11/17/2017 Status: F Source: [facility] GPC ID 8:48 PM [facility] REPOSITORY Copy of report sent to Infection Control Printer [id number] 11/18/17 1208 GPC ID RESULTS CALLED TO A VAN 11/18/17 1207 Maryjane Palma. REPORT READ BACK BY MANOLO. Staphylococcus sp. Not Detected Enterococcus sp. Not Detected Streptococcus spp. Streptococcus pyogenes (Group A Strep) Listeria spp Not Detected Jean-Pierre/vanB Not Detected mecA Not Detected NAAT METHOD Testing was performed using nucleic acid amplification ORGANISM 1: Streptococcus pyogenes Performed By: #### M200.1000, M100.636 #### [facility] [address] [place], [address] Observed: 11/17/2017 Status: F Source: [place] CULTURE, BLOOD (WB) 8:48 PM [facility] REPOSITORY BC No growth in 5 days. Performed By: #### M200.1000 #### [facility] [address] [place], [address] LIPID PROFILE Collected: 10/29/2017 Status: F Source: [place] 9:34 AM [facility] REPOSITORY Order Comment: Order Date: 10/29/17 Order Info: [id number] - LIPID Order Info: 3040-3 - LIPASE Order Info: 3016-3 - TSH TYPE CODE TESTS RESULT OUT OF RANGE REFERENCE UNITS LAB L501.4900 200 mg/dL Normal CHOL 118 Result Comment: <200 mg/dL Desirable 200-240 mg/dL Borderline >240 mg/dL High Risk LAB L501.5000 mg/dL Normal TRIG 74 Result Comment: The drugs N-Acetylcysteine and Metamizole may falsely depress this assay. Serum Triglycerides Reference Interval Normal <150 mg/dL Borderline high 150 - 199 mg/dL High 200 - 499 mg/dL Very High > or = 500 mg/dL LAB L501.6400 mg/dL Low HDL 33 Result Comment: The drugs N-Acetylcysteine and Metamizole may falsely depress this assay. Reference Range HDL <40 mg/dL Low HDL Cholesterol HDL >or= 60 mg/dL High HDL Cholesterol LAB L501.6500 0-130 mg/dL Normal LDL 70 LAB L501.6600 5-40 mg/dL Normal VLDL 15 Performed By: #### L500.4100, L501.2450, L501.9520 #### [facility] [address] [place], [address] LIPASE Collected: 10/29/2017 Status: F Source: [place] 9:34 AM [facility] REPOSITORY Order Comment: Order Date: 10/29/17 Order Info: [id number] - LIPID Order Info: 3040-3 - LIPASE Order Info: 3016-3 - TSH TYPE CODE TESTS RESULT OUT OF RANGE REFERENCE UNITS LAB L501.2450 73-393 U/L Normal LIPASE 167 Performed By: #### L500.4100, L501.2450, L501.9520 #### [facility] [address] [place], [address] THYROID STIM HORMONE Collected: 10/29/2017 Status: F Source: [place] (TSH) 9:34 AM [facility] REPOSITORY Order Comment: Order Date: 10/29/17 Order Info: [id number] - LIPID Order Info: 3040-3 - LIPASE Order Info: 3016-3 - TSH TYPE CODE TESTS RESULT OUT OF RANGE REFERENCE UNITS LAB L501.9520 0.358-3.74 uIU/mL Normal TSH 1.71 Performed By: #### L500.4100, L501.2450, L501.9520 #### [facility] [address] [place], [address] OPERATIVE REPORT Observed: 10/09/2017 Status: F Source: [place] 9:20 AM [facility] REPOSITORY [facility] Medical Records Department [address] [place] [address] Operative Report 10/09/1713 MR#: [id number] Acct: [id number] Name: TANO MANTILLA Rep #: [id number] : 1965 52 From: Rafa Plasencia MD PCP: Jimmy Gleason MD Status: [facility] [place] [facility] Problem List (1) Problem with dialysis access Status: Acute Qualifiers: Encounter type: subsequent encounter Report of Operation Date of Procedure: 10/09/17 Pre-Operative Diagnosis: Problem with left upper extremity radiocephalic arteriovenous hemodialysis fistula Post-Operative Diagnosis: Normal-appearing left extremity radiocephalic arteriovenous fistula Surgery/Procedure Performed:: Left upper extremity fistulogram Description of Surgical Findings:: Timeout and informed consent was obtained. 52-year-old gent was taken to the special procedures lab. He was placed supine on the table. The left extremity sterilely prepped and draped. Closer to the antecubital space I instilled 2% lidocaine. Placed a micropuncture needle retrograde with flow inserted a micropuncture wire then a 6 [place] short sheath dilator. Using an angled Glidewire and a 4 [place] angled glide cath the wire and catheter placed in the radial artery proximal to the anastomosis. Using Isovue contrast fistulogram was taken to the forearm upper arm and chest area. He tolerated it well. Sheath was removed U suture of 4-0 nylon was placed. There is good pulse thrill and bruit at the completion Fistula gram demonstrates a very dominant large cephalic vein was some reasonable change in the mid and proximal forearm. There appears to be excellent left upper arm cephalic and basilic vein outflow. There also appears to be excellent central venous outflow. The anastomosis is widely patent. Impression Widely patent left upper extremity radiocephalic arteriovenous fistula with no evidence of hemodynamically significant stenosis There is still remaining a dominant tributary sidebranch on the radial aspect of the fistula. If there are ongoing difficulties consideration for side branch ligation of that tributary could be considered. It is quite dominant. Rafa Plasencia M.D., F.A.C.S. 10/09/17 0920 <Electronically signed by Rafa Plasencia MD> Date Rafa Plasencia MD CC: Jimmy Gleason MD; Rafa Plasencia MD Signed CBC-COMPLETE BLOOD CNT Collected: 10/09/2017 Status: F Source: [place] NO DIFF 6:40 AM [facility] REPOSITORY TYPE CODE TESTS RESULT OUT OF RANGE REFERENCE UNITS LAB L100.1000 4.4-11.0 K/mm3 Normal WBC 5.4 LAB L100.1200 4.6-6.2 M/mm3 Low RBC 3.93 LAB L100.1300 13.0-16.5 g/dl Low HGB 11.4 LAB L100.1400 40-54 % Low HCT 36.4 LAB L100.1500 80-94 fL Normal MCV 92.6 LAB L100.1600 27.0-32.0 pg Normal MCH 29.0 LAB L100.1700 32-36 g/gl Low MCHC 31.3 LAB L100.1810 11.6-14.6 % High RDW CV 15.9 LAB L100.1820 35.1-43.9 fl High RDW SD 53.0 LAB L100.1900 150-450 K/mm3 Normal PLT 285 LAB L100.2000 6.2-12.0 fl Normal MPV 9.2 Performed By: #### L100.0500 #### [facility] [place], [address] BASIC METABOLIC Collected: 10/09/2017 Status: F Source: [place] PROFILE (BMP) 6:40 AM [facility] REPOSITORY TYPE CODE TESTS RESULT OUT OF RANGE REFERENCE UNITS LAB L501.0100 74-106 mg/dL Low GLU 73 Result Comment: Please note revised GLUCOSE reference range effective 2017. LAB L501.1000 7-18 mg/dL High BUN 63 LAB L501.1100 0.70-1.30 mg/dL High CREAT,SERUM 7.17 Result Comment: The validity of the calculated GFR AND GFRAA in patients over 70 years has not been determined. Clinical correlation is essential. LAB L501.1110 >60 mL/min Low EST GFR 9 Result Comment: Non- GFR Calc LAB L501.1115 >60 mL/min Low EST GFR - AA 10 Result Comment: GFR Calc LAB L501.1255 ml/min Normal Estimated CRCL 10.63 LAB L501.1300 10-20 RATIO Low BUN/CRE 8.8 LAB L501.2200 8.5-10 mg/dL Low .1 CA 8.2 LAB L501.5300 136-14 mmol/L Normal 5 NA 141 LAB L501.5600 3.5-5. mmol/L High 1 K 5.3 LAB L501.5900 98-107 mmol/L Normal CL 100 LAB L501.6100 21.0-3 mmol/L Normal 2.0 CO2 30.0 LAB L501.6200 5-15 Normal GAP 11 Performed By: #### L500.2500 #### [facility] [address] [place], [place], [address] SURGERY VISIT REPORT Observed: 10/07/2017 Status: F Source: [place] 2:20 PM [facility] REPOSITORY [facility] [address] [place] [address] OFFICE VISIT Date of Service: 10/07/17 MR#: [id number] Acct: [id number] Name: TANO MANTILLA Rep #: [id number] : 1965 Provider: Rafa Plasencia MD Age/Sex: 52/M Location: [facility] Status: Signed Intake Intake Visit Reasons: branch ligation x 2 Chief Complaint: branch ligation x2 left arm Portfolio Assistant Required: No Is patient in pain?: No Allergies No Known Allergies Allergy (Verified 10/07/17 12:39) Medications Amlodipine Besylate [Amlodipine Besylate] 5 mg PO DAILY 10/19/14 [History Confirmed 10/07/17] Doxazosin Mesylate [Cardura] 4 mg PO QHS 08/20/15 [History Confirmed 10/07/17] Lisinopril [Zestril] 40 mg PO QHS 08/20/15 [History Confirmed 10/07/17] Minoxidil [Loniten] 2.5 mg PO BID 08/20/15 [History Confirmed 10/07/17] Pravastatin [Pravachol] 40 mg PO QHS 08/20/15 [History Confirmed 10/07/17] Calcium Acetate [Phoslo Gel Cap] 667 mg PO TID 04/24/16 [History Confirmed 10/07/17] Dicyclomine HCl [Bentyl] 10 mg PO PRN PRN 04/24/16 [History Confirmed 10/07/17] Diphenoxylate HCl/Atropine [Lomotil 2.5-0.025 mg Tablet] 1 ea PO PRN PRN 04/24/16 [History Confirmed 10/07/17] Simethicone [Gas-X] 80 mg PO PRN PRN 04/24/16 [History Confirmed 10/07/17] Bacitracin 28.4 gm TP TID #1 oint...g. 08/12/17 [Rx Confirmed 10/07/17] fluticasone 50 mcg/actuation nasal spray,suspension 50 mcg INTRANASAL QDAY PRN 09/21/17 [History Confirmed 10/07/17] zafvlo-cbvnxaxg-xvgdkun 3,000-9,500-15,000 unit capsule,delayed releas cap PO TID cap 09/21/17 [History Confirmed 10/07/17] metoprolol tartrate 50 mg tablet 25 mg PO BID tab 09/21/17 [History Confirmed 10/07/17] vitamin B complex and vitamin C no.20-folic acid 1 mg capsule 1 cap PO QDAY 09/21/17 [History Confirmed 10/07/17] PFSH Medical History Diabetes (Acute) Kidney failure (Acute) Surgical History history left AV fistula creation (Acute) Social History Smoking Status: Never smoker HPI HPI HPI: TANO MANTILLA, is a 52 M who presents to the office today for surgical follow-up regarding left forearm radiocephalic arteriovenous fistula. He is scheduled today for a sidebranch ligation. He is also scheduled in 2 days to have a fistulogram. The patient has diminishing flow rates. Exam Const General: cooperative Nutritional Appearance: average body habitus Orientation: alert, awake Limitations: altered mental status Neck Neck: normal visual inspection Resp Effort AND Inspection: normal respiratory effort Auscultation: clear to auscultation bilaterally Cardio Rate: regular rate Rhythm: regular rhythm GI Inspection: normal to inspection Extrem Other: Left forearm radiocephalic arteriovenous fistula with dominant side branches 2 3. Office Procedures [facility] [place] Procedure Performed By: Procedure performed by: Kiara Plasencia Details Left forearm radiocephalic arteriovenous fistula side branch ligation 3 Timeout and informed consent was obtained. The patient taken to procedure room. Ultrasound was performed identifying 3 rather dominant side branches coming off the fistula in the distal forearm. The arm was prepped with Betadine. 1% lidocaine mixed 50-50 with 0.5% Marcaine was used as local anesthetic. A total of 5 cc was used. Small incision was made directly over the side branches as had been premarked by ultrasound. Sharp and blunt dissection was used to obtain circumferential control. Each were ligated with 2- 0 chromic sutures. The skin was approximated with interrupted 3-0 chromic. Steri-Strips Telfa OpSite dressings applied. He tolerated the procedure well. Blood loss was minimal. As noted he is also presenting for a fistulogram in 2 days to improve arterial inflow. Rafa Plasencia M.D., AngelitaA.CKarleeS. Procedure Time Out Time Out Informed consent given: Yes Consent signed: Yes Time out checklist: patient, procedure, site marked/identified, positioning of patient, supplies available, allergies confirmed, team agrees on procedure Time out staff in room: Yes Time out verified: Yes Time out date: 10/07/17 Time out time: 12:59 Assessment AND Plan Problems 1. Problem with dialysis access, subsequent encounter T82.898D Plan The patient is scheduled for left upper extremity arteriovenous fistulogram. I anticipate seeing accessing closer to the proximal forearm retrograde with flow. Great care will be taken because of the side branch ligation performed for him today. Rafa Plasencia M.D., Dusty.CKarleeS. Orders Orders: Coding Level of Care Code No Charge Diagnoses Problem with dialysis access, subsequent encounter T82.898D Encounter type: subsequent encounter Comment [id number] 10/07/17 1420 <Electronically signed by Rafa Plasencia MD> Date Rafa Plasencia MD Cosigner Signature: Date (if applicable) CC: SURGERY VISIT REPORT Observed: 09/22/2017 Status: F Source: [place] 11:45 AM [facility] [address] [place] [address] OFFICE VISIT Date of Service: 09/21/17 MR#: [id number] Acct: [id number] Name: TANO MANTILLA Rep #: [id number] : 1965 Provider: Aarti Gaming PA-C Age/Sex: 52/M Location: [facility] Status: Signed Intake Vital Signs09/21/17 Height 5 ft 6 in 09/21/17 Weight: 151 lb Intake Visit Reasons: to update h AND p for fistulogram Portfolio Assistant Required: No Is patient in pain?: No Allergies No Known Allergies Allergy (Verified 09/21/17 09:53) Medications Amlodipine Besylate [Amlodipine Besylate] 5 mg PO DAILY 10/19/14 [History Confirmed 09/21/17] Doxazosin Mesylate [Cardura] 4 mg PO QHS 08/20/15 [History Confirmed 09/21/17] Lisinopril [Zestril] 40 mg PO QHS 08/20/15 [History Confirmed 09/21/17] Minoxidil [Loniten] 2.5 mg PO BID 08/20/15 [History Confirmed 09/21/17] Pravastatin [Pravachol] 40 mg PO QHS 08/20/15 [History Confirmed 09/21/17] Calcium Acetate [Phoslo Gel Cap] 667 mg PO TID 04/24/16 [History Confirmed 09/21/17] Dicyclomine HCl [Bentyl] 10 mg PO PRN PRN 04/24/16 [History Confirmed 09/21/17] Diphenoxylate HCl/Atropine [Lomotil 2.5-0.025 mg Tablet] 1 ea PO PRN PRN 04/24/16 [History Confirmed 09/21/17] Simethicone [Gas-X] 80 mg PO PRN PRN 04/24/16 [History Confirmed 09/21/17] Bacitracin 28.4 gm TP TID #1 oint...g. 08/12/17 [Rx Confirmed 09/21/17] fluticasone 50 mcg/actuation nasal spray,suspension 50 mcg INTRANASAL QDAY PRN 09/21/17 [History Confirmed 09/21/17] ushwce-uzacrmkv-sqfuyal 3,000-9,500-15,000 unit capsule,delayed releas cap PO TID cap 09/21/17 [History Confirmed 09/21/17] metoprolol tartrate 50 mg tablet 25 mg PO BID tab 09/21/17 [History Confirmed 09/21/17] vitamin B complex and vitamin C no.20-folic acid 1 mg capsule 1 cap PO QDAY 09/21/17 [History Confirmed 09/21/17] PFSH Medical History Diabetes (Acute) Kidney failure (Acute) Surgical History history left AV fistula creation (Acute) Social History Smoking Status: Never smoker HPI HPI HPI: TANO MANTILLA, is a 52 M who presents for decreased flow rates. Patient dialyzes at [facility] dialysis T, Th, Sat. Dr. Luis Angel childs performed a fistulogram on 04/24/17. Findings included significant stenosis proximal portion of fistula and anastomosis. A 5 x 2 conquest balloon and 9 x 2 [place] balloon angioplasty was performed. Patient denies pain/discomfort at the fistula site. ROS General General: No weight change, appetite, fatigue, colon cancer, breast cancer or weakness HEENT HEENT: Yes eye injury and eye surgery; no difficulty swallowing, swollen glands or hoarseness Endo Endocrine: Yes diabetes mellitus; no thyroid disease, thyroid cancer, Hair loss, heat intolerance or cold intolerance Skin Skin: No rash or changing moles Breast Breast: No left breast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
== END ==
PROVIDERS: Family Provider Family Medicine; PCP Family Medicine; Referring Provider Orthopaedic Surgery; Visit Provider Orthopaedic Surgery
DX: M70.21 Olecranon bursitis, right elbow (principal)
CPT/HCPCS: 88304